=== PATIENT | female | born 1965 | race Caucasian/White ===

== ENCOUNTER → 2016-12-25 | Outpatient (CLI) | payer BC, OTHER ==
[~2016-12-25] VITALS: Ht 175.3 cm; Wt 53.4 kg
[~2016-12-25] MED LIST: AAA; CHANTIX1 MG PO; DEPO-PROVERA IJ; GINKGO BILOBA120 MG PO; HORMONES; HYDROCODON-ACE1 EAC5 PO; NORCO 10-325 T1 EACH PO; VOLTAREN GEL 1100 GM TOP; WELLBUTRIN 75 M75 M1 PO
--- NOTE | ~2016-12-25 | HPC ---
[facility] [place] [address] PAIN MANAGEMENT CONSULTATION Name: DEMIMARYLUJULIUS WILKES Room #: REG [facility] Magy.#: [id number] Admission: 12/25/16 Attend Phys: Elroy Campos DO Discharge: Date of : 61 Report #: [id number] THIS REPORT FOR: //name// CC: Anne Campos The patient is a 51-year-old female being treated for lumbar radiculopathy, chronic pain syndrome requiring complex medication management. Last seen in the pain clinic 08/25/2016. Continued hydrocodone 10/325, 100 tablets for 30 days. Cautioned about daytime somnolence, mental acuity changes and constipation. Recommended to decreased tobacco. Returns to pain clinic today, last urine drug screen 03/06/2016 positive for prescribed medications, but also noted to have ethanol component as well. I have concerned prior urine drug screen 1 year ago 02/01/2015 also had hydrocodone and tablets of ethanol. She continues to use spinal cord stimulator and is efficacious. She notes pain across the low back is generally well controlled. She and her traveled to [place] for majority of the winter. They had summered in [facility]. She notes with increasing activity at night and simply "lounging" around during the day, reading books, and tanning. She did increase her smoking. She is back to nearly a pack a day. She was counseled regarding need for smoking cessation. She notes overall medications provide sufficient analgesia to participate in activities of daily living. Chronic axial back pain again does get some control with the spinal cord stimulator, hydrocodone helps with, pain exacerbated with physical activity. PHYSICAL EXAMINATION: GENERAL: Shows a pleasant 51-year-old female, BMI is 19.2 kilograms per meter squared. Vital signs stable. Alert and oriented to person, place and time, judged to be a reasonable historian. Rises from chair easily. Gait is tandem. Diffuse tenderness across the low back. We reviewed the fact that opiate medications are being used to provide analgesia adequate to support activities of daily living, not attempting to achieve a specific pain score on the 0-10 Visual Analog Scale. The current opiate medications are providing sufficient analgesia to allow the patient to participate in activities of daily living. The patient is not exhibiting any aberrant behavior suggestive of drug diversion. The patient is not having any adverse reactions to medications. The patient is not suffering from daytime somnolence or mental acuity changes. The patient is managing opiate-induced constipation with appropriate auvb-pgj-oqdzhgq agents and dietary considerations. The patient was counseled on concern for caution with operating a motor vehicle while using opiate medications. A physical exam was performed and the patient's functional status was evaluated. All patients with back pain were advised against the bed rest greater than [address] [address] PAIN MANAGEMENT CONSULTATION Name: JULIUS FANG Room #: REG CL Jose#: [id number] Admission: 12/25/16 Attend Phys: Elroy Campos DO Discharge: Date of : 61 Report #: [id number] days and were advised to return to normal activities. Pain score assessment was noted and the treatment plan was reviewed with the patient. All current medications, both prescribed and OTC were reviewed and reconciled on the electronic medical record. Tobacco screening was accomplished and smoking cessation was advised when indicated. BMI was noted and diet/exercise modification was recommended for all patients following outside normal parameters. I reviewed with the patient today their responsibilities to safeguard prescription medications, reviewed their responsibility to utilize medications only as prescribed by the physician. They are to seek and receive pain medications only from 1 physician group ( [facility]). They are to use 1 pharmacy and keep the clinic informed if they change pharmacies. Their responsibilities include making followup visits in a timely fashion and to avoid abrupt discontinuation of medication usage. Their responsibilities further include bringing their medications (bottles from the pharmacy with residual pills) to the visit for possible confirmation of pill counts and the patient understands it is their responsibility to submit to random drug screens to ensure both that the medications prescribed are present, and that no other controlled substances are present. All prescriptions provided today were generated electronically. ASSESSMENT: Symptomatic lumbar radiculopathy, chronic pain syndrome requiring complex medication management. RECOMMENDATIONS: 1. Renew hydrocodone 10/325, 100 tablets for 30 days, taken the liberty of writing for 3 months of current medication. 2. Continue spinal cord stimulator unchanged. 3. Cautioned about smoking cessation and concurrent use of ethanol with hydrocodone. We will likely get a urine drug screen at next visit and it should be around 1 year since the last UDS. The patient was cautioned about concerns for osteoarthritis with a postmenopausal female, BMI less than 20 and nicotine use. She is following up with Dr. Julian, actually this week for bone density test. I strongly encouraged her to continue with this. By: [id number] Elroy Campos, /nt
[2016-12-25 10:22] VITALS: BP 152/103
== END | disposition home or self-care (01) ==
LOC: PAIN 06:51
DX: M54.16 Radiculopathy, lumbar region (principal); G89.4 Chronic pain syndrome; F17.200 Nicotine dependence, unspecified, uncomplicated

== ENCOUNTER → 2017-03-23 | Outpatient (CLI) | payer BC, OTHER ==
[~2017-03-23] VITALS: Ht 175.3 cm; Wt 51.3 kg
[~2017-03-23] MED LIST changes: +LISINOPRIL20 MG PO
[2017-03-23 13:24] VITALS: BP 122/86
== END | disposition home or self-care (01) ==
LOC: PAIN 06:56
DX: M54.16 Radiculopathy, lumbar region (principal); G89.29 Other chronic pain; M54.9 Dorsalgia, unspecified; F11.20 Opioid dependence, uncomplicated; F17.200 Nicotine dependence, unspecified, uncomplicated

== ENCOUNTER → 2017-06-25 | Outpatient (CLI) | payer BC, OTHER ==
[~2017-06-25] VITALS: Ht 175.3 cm; Wt 51.4 kg
[~2017-06-25] MED LIST changes: +CALCIUM 600 +1 EAC1 PO; -GINKGO BILOBA120 MG PO; +[UNRECOGNIZED DRUG - OTHER] PO
--- NOTE | ~2017-06-25 | HPC ---
[facility] [place] [address] [address] [place] [address] PAIN MANAGEMENT CONSULTATION Name: ANNALISAJULIUS WILKES Room #: REG JOSY Garcia#: [id number] Admission: 06/25/17 Attend Phys: Elroy Campos, Discharge: Date of : 61 Report #: [id number] THIS REPORT FOR: //name// CC: Anne Campos The patient is a 52-year-old female, being treated for lumbar radiculopathy, axial back pain, requiring high risk complex medication management. Last seen in the pain clinic 03/23/2017, continued on hydrocodone 10/325 one tablet 3-4 times a day, limit 100 tablets for 30 days. The patient was counseled regarding smoking cessation. She is somewhat cachectic, BMI is 16.7 kg/m2. We talked about concern for osteoporosis. 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 Physician had suggested that she start on calcium and vitamin D. We talked about tobacco cessation, she has weaned tobacco. She had planned on quitting, she notes with some ad that her pkrtoh-ix-mjm is coming in July, she notes that she will try and completely quit smoking after that visit. Otherwise, she is doing reasonably well on current medication. No problems with daytime somnolence, mental acuity changes, or constipation. Rates her pain a 2 on VAS, notes that pain is primarily back, right little greater than left. Uses spinal cord stimulator to help with pain management and medications as needed for her ongoing axial back and lumbar radicular pain. PHYSICAL EXAMINATION: A 52-year-old female, BMI remains 16.7 kg/m2. Blood pressure 148/91, pulse 73, and respirations are 14. Alert and oriented to person, place and time, judged to be a reasonable historian. Rises from chair using armrest. Gait is tandem. Lower extremity strength is generally symmetric. Lumbar flexion is modestly limited. She is doing water therapy daily, again talked about medications for bone density and strongly encouraged smoking cessation. Last buccal drug swab 03/23/2017, was positive for prescribed medications. Alcohol was not listed (prior urine drug screen 03/08/2017, was positive for hydrocodone, hydrocodone metabolites and ethanol metabolites). We reviewed the fact that opiate medications are being used to provide analgesia adequate to support activities of daily living, not attempting to achieve a specific pain score on the 0-10 Visual Analog Scale. The current opiate medications are providing sufficient analgesia to allow the patient to participate in activities of daily living. The patient is not exhibiting any aberrant behavior suggestive of drug diversion. The patient is not having any adverse reactions to medications. The patient is not suffering from daytime somnolence or mental acuity changes. The patient [place] [address] PAIN MANAGEMENT CONSULTATION Name: JULIUS FANG Room #: REG CLKey Garcia#: [id number] Admission: 06/25/17 Attend Phys: Elroy Campos DO Discharge: Date of : 61 Report #: [id number] constipation with appropriate wfaw-wnc-aijnqiz agents and dietary considerations. The patient was counseled on concern for caution with operating a motor vehicle while using opiate medications. A physical exam was performed and the patient's functional status was evaluated. All patients with back pain were advised against the bed rest greater than 4 days and were advised to return to normal activities. Pain score assessment was noted and the treatment plan was reviewed with the patient. All current medications, both prescribed and OTC were reviewed and reconciled on the electronic medical record. Tobacco screening was accomplished and smoking cessation was advised when indicated. BMI was noted and diet/exercise modification was recommended for all patients following outside normal parameters. I reviewed with the patient today their responsibilities to safeguard prescription medications, reviewed their responsibility to utilize medications only as prescribed by the physician. They are to seek and receive pain medications only from 1 physician group ( [facility]). They are to use 1 pharmacy and keep the clinic informed if they change pharmacies. Their responsibilities include making followup visits in a timely fashion and to avoid abrupt discontinuation of medication usage. Their responsibilities further include bringing their medications (bottles from the pharmacy with residual pills) to the visit for possible confirmation of pill counts and the patient understands it is their responsibility to submit to random drug screens to ensure both that the medications prescribed are present, and that no other controlled substances are present. All prescriptions provided today were generated electronically. ASSESSMENT: Axial back pain, lumbar radiculopathy, requiring high risk complex medication management, stable on hydrocodone 10/325 one tablet 3-4 times a day, limit 100 tablets for 30 days, using spinal cord stimulator appropriately. Follow up in 3 months for reevaluation. <ELECTRONICALLY SIGNED> By: Elroy Campos DO 06/27/17 [id number] Elroy Campos DO /nt
[2017-06-25 09:27] VITALS: BP 148/91
== END ==
LOC: PAIN 06:59
DX: M54.16 Radiculopathy, lumbar region (principal)

== ENCOUNTER → 2017-08-27 | Outpatient (CLI) | payer BC, OTHER ==
[~2017-08-27] VITALS: Ht 175.3 cm; Wt 49.9 kg
--- NOTE | ~2017-08-27 | HPC ---
[facility] [place] [address] [place] [address] PAIN MANAGEMENT CONSULTATION Name: JULIUS FANG Room #: REG [facility] Magy.#: [id number] Admission: 08/27/17 Attend Phys: Elroy Campos DO Discharge: Date of : 61 Report #: [id number] THIS REPORT FOR: //name// CC: Anne Campos HISTORY OF PRESENT ILLNESS: The patient is a 52-year-old female, long known to the pain clinic for chronic lumbar radiculopathy, axial back pain requiring high risk complex medication management. The patient was last seen in pain clinic on 06/25/2017, continued hydrocodone 10/325 one tablet 3-4 times a day, limit 100 tablets for 30 days. Last random drug screen on 03/23/2017 was positive for prescribed medications and no others. (Prior 2014 and 2015 studies were positive for prescribed medications as well as ethanol metabolites). She returns to clinic today. She drinks alcohol occasionally socially. She is weaning down on her cigarettes. She is osteopenic and does take vitamin D and calcium. This is prescribed by her general practitioner. She has spinal cord stimulator placed to help with ongoing axial back pain. She rates her pain overall 2 on a VAS. She notes pain is worse in the morning, pain is primarily back and right side. PHYSICAL EXAMINATION: Shows a thin 52-year-old female, BMI is quite low at 16.2 kilograms per meter squared. The patient was cautioned about osteopenia and cachexia, encouraged protein supplementation. Blood pressure is modestly elevated at 140/95, pulse 86, respirations 14. She is alert and oriented to person, place and time and judged to be a reasonable historian. Rises easily. Gait is tandem. Has some tenderness in the right low back. Lumbar flexion is full at 90 degrees. Pain slightly exacerbates with rotation and side bending. Lower extremity strength is symmetric. Straight leg raise is negative. ASSESSMENT: Symptomatic axial back pain, history of lumbar radiculopathy, requiring high risk complex medication management, stable on baseline medication. RECOMMENDATIONS: 1. Again continue smoking cessation. She has weaned significantly. 2. Continue hydrocodone 10/325 one tablet 3-4 times a day, limit 100 tablets for 30 days. I have taken the liberty of writing for 3 months of current medication. Follow up at that time, earlier if needed. <ELECTRONICALLY SIGNED> By: Elroy Campos DO 08/29/17 [id number] Elroy Campos DO /nt
[2017-08-27 11:35] VITALS: BP 140/95
== END ==
LOC: PAIN 07:11
DX: M54.16 Radiculopathy, lumbar region (principal); Z79.899 Other long term (current) drug therapy

== ENCOUNTER → 2017-12-17 | Outpatient (CLI) | payer BC, OTHER ==
[~2017-12-17] VITALS: Ht 177.8 cm; Wt 52.2 kg
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
[2017-12-17 09:50] VITALS: BP 156/106
== END ==
LOC: PAIN 07:12
DX: M54.16 Radiculopathy, lumbar region (principal); Z79.899 Other long term (current) drug therapy

== ENCOUNTER → 2018-03-15 | Outpatient (CLI) | payer BC, OTHER ==
[~2018-03-15] VITALS: Ht 175.3 cm; Wt 52.6 kg
--- NOTE | ~2018-03-15 | HPC ---
[facility] [place] [address] PAIN MANAGEMENT CONSULTATION Name: JULIUS FANG Room #: REG JOSY Bhatti.#: [id number] Admission: 03/15/18 Attend Phys: Elroy Campos DO Discharge: Date of : 61 Report #: [id number] THIS REPORT FOR: //name// CC: Anne Campos DATE OF SERVICE: 03/15/2018 HISTORY OF PRESENT ILLNESS: The patient is a pleasant 52-year-old female, long treated for symptomatic lumbar radiculopathy and axial back pain requiring complex medication management. She has a Selphee spinal cord stimulator implanted back in 2010 by Kai Andrew MD. She has a central posterior epidural space lead and then a right horizontal subcutaneous lead. States she had a fairly good relief using this device. Unfortunately, she notes she is having to charge it more frequently. She may have to have the IPG replaced, I suggested she follow up with Dr. Andrew regarding this. She was last seen in pain clinic on 12/17/2017, continued on hydrocodone 10/325, limit 100 tablets for 30 days. She was counseled regarding smoking cessation and I am pleased to note that she is now 30 days a nonsmoker. She is loathe to say she is a "nonsmoker." She simply tells me she has "not had a cigarette today nor has she in the past 30 days." The patient notes current medications are generally providing sufficient analgesia to participate in activities of daily living. She and her travel extensively. He brought her a fairly aggressive motorcycle. He rides a [employer] himself. They trailer the motorcycles around to various locations where they stay for prolonged vacations. They are planning to go to [place], [place], in the next month. PHYSICAL EXAMINATION: GENERAL: Shows a pleasant 52-year-old female. She remains quite underweight with a BMI of 17.1 kilograms per meter squared. She was counseled regarding increasing caloric intake. VITAL SIGNS: Blood pressure is elevated today at 167/106, pulse 66, respirations are 14. Blood pressure was repeated at 140/98. MUSCULOSKELETAL: Subjective pain score is 2-3 on a VAS. Opiate consent to treat contract was signed on 03/06/2016. Functional assessment tool score is fairly low at 8/70. Physical exam otherwise notes the patient rises easily. Gait is tandem. Lower extremity strength is preserved. Diffuse tenderness across the low back. The IPG is easily palpable in the left flank, can somewhat palpate the right lateral subcutaneous lead and appears to be around the L3-L4 distribution heading right. Lumbar range of motion is modestly limited. We reviewed the fact that opiate medications are being used to provide analgesia adequate to support activities of daily living, not attempting to achieve a [facility] [address] [place] [address] PAIN MANAGEMENT CONSULTATION Name: JULIUS FANG Room #: REG JOSY Garcia#: [id number] Admission: 03/15/18 Attend Phys: Elroy Campos DO Discharge: Date of : 61 Report #: [id number] specific pain score on the 0-10 Visual Analog Scale. The current opiate medications are providing sufficient analgesia to allow the patient to participate in activities of daily living. The patient is not exhibiting any aberrant behavior suggestive of drug diversion. The patient is not having any adverse reactions to medications. The patient is not suffering from daytime somnolence or mental acuity changes. The patient is managing opiate-induced constipation with appropriate dltn-zsg-pffpazv agents and dietary considerations. The patient was counseled on concern for caution with operating a motor vehicle while using opiate medications. A physical exam was performed and the patient's functional status was evaluated. All patients with back pain were advised against the bed rest greater than 4 days and were advised to return to normal activities. Pain score assessment was noted and the treatment plan was reviewed with the patient. All current medications, both prescribed and OTC were reviewed and reconciled on the electronic medical record. Tobacco screening was accomplished and smoking cessation was advised when indicated. BMI was noted and diet/exercise modification was recommended for all patients following outside normal parameters. I reviewed with the patient today their responsibilities to safeguard prescription medications, reviewed their responsibility to utilize medications only as prescribed by the physician. They are to seek and receive pain medications only from 1 physician group ( [facility]). They are to use 1 pharmacy and keep the clinic informed if they change pharmacies. Their responsibilities include making followup visits in a timely fashion and to avoid abrupt discontinuation of medication usage. Their responsibilities further include bringing their medications (bottles from the pharmacy with residual pills) to the visit for possible confirmation of pill counts and the patient understands it is their responsibility to submit to random drug screens to ensure both that the medications prescribed are present, and that no other controlled substances are present. All prescriptions provided today were generated electronically. ASSESSMENT: Axial back pain, lumbar radiculopathy requiring complex medication management. The patient is stable on baseline medications. Last random drug screen 03/23/2017, positive for prescribed medications. RECOMMENDATION: 1. The patient was congratulated on 30 days smoking cessation, encouraged to continue in this mode. 2. Renew hydrocodone 10/325, limit 100 tablets for 30 days. I have taken the [facility] [address] [place] [address] PAIN MANAGEMENT CONSULTATION Name: JULIUS FANG Room #: REG [facility].#: [id number] Admission: 03/15/18 Attend Phys: Elroy Campos DO Discharge: Date of : 61 Report #: [id number] liberty of writing for 3 months of current medication. Follow up with one of the [facility] at that time, earlier if needed. <ELECTRONICALLY SIGNED> By: Elroy Campos DO 03/18/18 0659 [id number] 11 Elroy Campos DO /nt
[2018-03-15 09:25] VITALS: BP 167/106
== END ==
LOC: PAIN 06:52
DX: M54.16 Radiculopathy, lumbar region (principal); M54.5 Low back pain; Z79.899 Other long term (current) drug therapy

== ENCOUNTER → 2018-06-11 | Outpatient (CLI) | payer BC, OTHER ==
[~2018-06-11] VITALS: Ht 175.3 cm; Wt 53.7 kg
--- NOTE | ~2018-06-11 | HPC ---
[facility] [address] [place] [address] PAIN MANAGEMENT CONSULTATION Name: ANNALISAJULIUS WILKES Room #: REG [facility] [place].#: [id number] Admission: 06/11/18 Attend Phys: Abebe Campos DO Discharge: Date of : 61 Report #: [id number] THIS REPORT FOR: //name// CC: Abebe Lopez DATE OF SERVICE: 06/11/2018 PRIMARY CARE PHYSICIAN: Anne Julian DO CHIEF COMPLAINT: Back pain, lower extremity pain and paresthesias. HISTORY OF PRESENT ILLNESS: As you know, the patient is a very pleasant 53-year-old female with longstanding history of symptomatic lumbar radiculopathy and axial back pain. The patient has undergone treatment with a spinal cord stimulator, but is having difficulty with battery. It appears the patient is having difficulty with charging her battery and maintaining efficacy with the device. She has contacted [employer] who indicates that they believe her battery is beginning to fail and she may ultimately need changes, which would be an excellent opportunity to move towards the newer battery and newer technology, so she can get a subtherapeutic treatment where she is not feeling the paresthesias, she is going to look into this further. She returns today in followup visit requesting refill of medications. She states no side effects to medication of somnolence, decreased mental acuity, disorientation, confusion, mental slowing and constipation issues. She is placing her pain score today 2/10, which is good for her. She returns with aching and sharp sensation in her back and lower extremities. She has requested refills for the next 3 months. She has been appropriate with her therapy. ALLERGIES: No known drug allergies. CURRENT MEDICATIONS: Hydrocodone/acetaminophen 10/325 one tab every 6 hours p.r.n. for pain, calcium carbonate 1 tab per day, lisinopril 20 mg once a day, bupropion 75 mg twice a day. SOCIAL HISTORY: The patient denies current tobacco use. Denies IV or illicit drug use. She is working, not receiving workmen's compensation, unaccompanied today. IMAGING: No new imaging available. PHYSICAL EXAMINATION: VITAL SIGNS: Blood pressure 123/81, pulse 74, respiratory rate 14 and unlabored. The patient is 97% on room air. Height 5 feet 9 inches tall, weight 118.4 pounds, BMI calculated 17.5. [place] [address] PAIN MANAGEMENT CONSULTATION Name: JULIUS FANG Room #: REG CLI [facility]#: [id number] Admission: 06/11/18 Attend Phys: Abebe Campos DO Discharge: Date of : 61 Report #: [id number] GENERAL: Well-developed, well-nourished, well-hydrated, thin, 53-year-old female, appearing stated age, placing current pain score at 2/10. HEENT: Normocephalic, atraumatic. Pupils equal, round, reactive to light. EXTREMITIES: Show no clubbing, no cyanosis, no edema. MUSCULOSKELETAL: Seated straight leg raising negative. Supine straight leg raising is positive. Coral's test negative. Modified Gaenslen's positive for axial low back pain. Ankle clonus negative. Babinski is negative. Gait mildly antalgic. There is slight forward flexion of lumbar spine in standing position. ASSESSMENT: 1. Lumbar radiculopathy. 2. Lumbosacral spondylosis with radiculopathy. 3. Lumbar degeneration. 4. Chronic intractable pain. PLAN: 1. The patient returns today in followup visit requesting refill on medications. She states her medications are working beneficially, this in conjunction with her spinal cord stimulator. She returns requesting refill on the medication today. 2. We reviewed the fact that opiate medications are being used to provide analgesia adequate to support activities of daily living, not attempting to achieve a specific pain score on the 0-10 Visual Analog Scale. The current opiate medications are providing sufficient analgesia to allow the patient to participate in activities of daily living. The patient is not exhibiting any aberrant behavior suggestive of drug diversion. The patient is not having any adverse reactions to medications. The patient is not suffering from daytime somnolence or mental acuity changes. The patient is managing opiate-induced constipation with appropriate gjml-rmx-yywfixt agents and dietary considerations. The patient was counseled on concern for caution with operating a motor vehicle while using opiate medications. A physical exam was performed and the patient's functional status was evaluated. All patients with back pain were advised against the bed rest greater than 4 days and were advised to return to normal activities. Pain score assessment was noted and the treatment plan was reviewed with the patient. All current medications, both prescribed and OTC were reviewed and reconciled on the electronic medical record. Tobacco screening was accomplished and smoking cessation was advised when indicated. BMI was noted and diet/exercise modification was recommended for all patients following outside normal parameters. I reviewed with the patient today their responsibilities to safeguard prescription medications, reviewed their responsibility to utilize medications only as prescribed by the physician. They are to seek and receive pain medications only from 1 physician group ([facility]). They are to use [address] [address] PAIN MANAGEMENT CONSULTATION Name: JULIUS FANG Room #: REG JOSY Garcia#: [id number] Admission: 06/11/18 Attend Phys: Abebe Campos DO Discharge: Date of : 61 Report #: [id number] 1 pharmacy and keep the clinic informed if they change pharmacies. Their responsibilities include making followup visits in a timely fashion and to avoid abrupt discontinuation of medication usage. Their responsibilities further include bringing their medications (bottles from the pharmacy with residual pills) to the visit for possible confirmation of pill counts and the patient understands it is their responsibility to submit to random drug screens to ensure both that the medications prescribed are present, and that no other controlled substances are present. All prescriptions provided today were generated electronically. 3. The patient was provided prescription of hydrocodone 10/325, 1 tab p.o. q. 6 hours p.r.n. for pain, I have given the patient #100, releases of today, 4 weeks from today, 8 weeks from today, 3 months' worth of medication. The patient wants to take the medication as directed. She is not to take the medication prophylactically and use only when pain is intolerable. 4. The patient will submit her urine drug screen today. This is part of our opioid contract and monitoring system. The patient will undergo this drug screen today. She can call for the results in the next week. 5. The patient and I had a very long discussion about spinal cord stimulator technology. It does appear the patient is having difficulty with her pulse generator and the battery tends to appear as if it is failing. I have advised the patient to contact the [employer] account maintenance representative to make further adjustments if at all possible if the battery is truly at its end of life. Given 7-year implant, this is probably the case, she could exchange this for a new battery and pulse generator, which could provide the patient with subtherapeutic paresthesias, thus reducing the "shocking sensation she has been experiencing." The patient will look into this further. We encouraged her to do so. 6. We will see the patient back in followup visit in 3 months for medication therapy. <ELECTRONICALLY SIGNED> By: Abebe Campos DO 06/12/18 0848 [id number] Abebe Campos DO /nt
[2018-06-11 09:00] VITALS: BP 123/81
== END ==
LOC: PAIN 06:50
DX: M54.16 Radiculopathy, lumbar region (principal); G89.4 Chronic pain syndrome; M51.36 Other intervertebral disc degeneration, lumbar region; M47.817 Spondylosis without myelopathy or radiculopathy, lumbosacral region; Z79.899 Other long term (current) drug therapy

== ENCOUNTER → 2018-09-04 | Outpatient (CLI) | payer BC, OTHER ==
[~2018-09-04] VITALS: Ht 175.3 cm; Wt 52.7 kg
--- NOTE | ~2018-09-04 | HPC ---
[facility] [place] [address] PAIN MANAGEMENT CONSULTATION Name: ANNALISAJULIUS WILKES Room #: REG [facility] Magy.#: [id number] Admission: 09/04/18 Attend Phys: Cassia Owens Discharge: Date of : 61 Report #: [id number] THIS REPORT FOR: //name// CC: Cassia Owens Anne Eliel DATE OF SERVICE: 09/04/2018 CHIEF COMPLAINT: Back pain, lower extremity pain and paresthesias. HISTORY OF PRESENT ILLNESS: This is a very pleasant 53-year-old female with longstanding history of lumbar radiculopathy and axial back pain. She tells me today she has a spinal cord stimulator that has not been working. Last time she was here, the battery was running low and Dr. Campos talked to her about having it replaced. She has seen Dr. Andrew and spoke with the [employer] rep and is scheduled for surgery in October to have her battery replaced. She tells me since it has not been working, that her pain score is slightly higher, rating her pain today at 3/10. I am looking forward to having it replace with a new battery, newer technology, think that it can help quite a bit more, that she is going out of town to [place] for the next several months, so that is why she is waiting until October since she was unable to get it done this year. She complains of pain in right side of her lower back of an aching, sharp pain, rating at 3/10 today, better with medications and was previously better with her spinal cord stimulator. She would like a refill of her current medications today. CURRENT ALLERGIES: No known drug allergies. MEDICATIONS: Hydrocodone 10/325 up to 4 times a day, calcium with vitamin D, lisinopril 20 mg daily, bupropion 75 mg twice a day. PQRS: The patient does not take medicines for osteoarthritis or rheumatoid arthritis. Height is 5 feet 9 inches, weight is 116, BMI is 17. Vital signs: Blood pressure 130/90, pulse is 78, respirations 14, oxygen sat 97%. Pain score 3/10. Denies dizziness. Does not need help walking or standing. Has not fallen in the last 3 months. She is not on a blood thinner and does have a history taking hypertension medicines. Opioid therapy is greater than 6 weeks, therefore, an opioid signed contract is on the chart. Her risk assessment is low and her functional assessment is 8/70. The patient denies recreational drug use. She is a former smoker and occasionally drinks alcohol. We did check the prescription monitoring system. The patient is filling appropriately from Dr. Abebe Campos, this year show that she does take some Ativan, which she has not told us about, that only has taken a couple per the prescription monitoring systems. She has a recent drug screen on the chart, which is appropriate with the medications that she is taking. The patient tells me she does safeguard her medications. [address] [address] PAIN MANAGEMENT CONSULTATION Name: JULIUS FANG Room #: REG JOSY Garcia#: [id number] Admission: 09/04/18 Attend Phys: Cassia Owens Discharge: Date of : 61 Report #: [id number] PHYSICAL EXAMINATION: GENERAL: This is a well-developed, well-nourished, well-hydrated, thin 53-year-old, appears her stated age, placing her current pain score at 3/10. HEENT: Normocephalic, atraumatic. Pupils equal, round and reactive to light. EXTREMITIES: Showing no clubbing, no cyanosis, no edema. MUSCULOSKELETAL: Seated straight leg raising is negative. There is a slight forward flexion of the lumbar spine in the standing position. She complains of axial low back pain. Gait is mildly antalgic. ASSESSMENT: 1. Lumbar radiculopathy. 2. Lumbosacral spondylosis with radiculopathy. 3. Lumbar degeneration. 4. Chronic intractable pain. We reviewed the fact that opiate medications are being used to provide analgesia adequate to support activities of daily living, not attempting to achieve a specific pain score on the 0-10 Visual Analog Scale. The current opiate medications are providing sufficient analgesia to allow the patient to participate in activities of daily living. The patient is not exhibiting any aberrant behavior suggestive of drug diversion. The patient is not having any adverse reactions to medications. The patient is not suffering from daytime somnolence or mental acuity changes. The patient is managing opiate-induced constipation with appropriate vtny-wym-ojyrayj agents and dietary considerations. The patient was counseled on concern for caution with operating a motor vehicle while using opiate medications. A physical exam was performed and the patient's functional status was evaluated. All patients with back pain were advised against the bed rest greater than 4 days and were advised to return to normal activities. Pain score assessment was noted and the treatment plan was reviewed with the patient. All current medications, both prescribed and OTC were reviewed and reconciled on the electronic medical record. Tobacco screening was accomplished and smoking cessation was advised when indicated. BMI was noted and diet/exercise modification was recommended for all patients following outside normal parameters. I reviewed with the patient today their responsibilities to safeguard prescription medications, reviewed their responsibility to utilize medications only as prescribed by the physician. They are to seek and receive pain medications only from 1 physician group ( [facility]). They are to use 1 pharmacy and keep the clinic informed if they change pharmacies. Their responsibilities include making followup visits in a timely fashion and to avoid abrupt discontinuation of medication usage. Their responsibilities further include bringing their medications (bottles from the pharmacy with residual [facility] [address] [place] [address] PAIN MANAGEMENT CONSULTATION Name: ANNALISAJULIUSRosemary WILKES Room #: REG [facility] Nancy.Emily.#: [id number] Admission: 09/04/18 Attend Phys: Cassia Owens Discharge: Date of : 61 Report #: [id number] pills) to the visit for possible confirmation of pill counts and the patient understands it is their responsibility to submit to random drug screens to ensure both that the medications prescribed are present, and that no other controlled substances are present. All prescriptions provided today were generated electronically. PLAN: 1. The patient returns for followup visit today requesting refills of her medications. She tells me that they are working very well. She felt like she had better pain control and her spinal cord stimulator was working, but the battery has been completely depleted and now is scheduled for a replacement in October after she returns home from her [place] winter vacation. 2. Scripts given today for hydrocodone 10/325 one tablet up to 4 times a day, quantity is 100, for release today, 4-week and 8-week. The patient tells me that she will safeguard these medicines, especially when they are traveling out of state, but does keep them locked up in her trailer when she is gone. 3. The patient will return after her spinal cord stimulator has been replaced in late October. The patient is seen today in collaboration with Dr. Abebe Campos. <ELECTRONICALLY SIGNED> By: Cassia Owens 09/05/18 0833 [id number] [id number] Cassia Owens /nt
[2018-09-04 09:44] VITALS: BP 130/90
== END ==
LOC: PAIN 08:50
DX: M47.27 Other spondylosis with radiculopathy, lumbosacral region (principal); G89.4 Chronic pain syndrome; M51.36 Other intervertebral disc degeneration, lumbar region

== ENCOUNTER → 2018-11-05 | Outpatient (CLI) | payer BC, OTHER ==
[~2018-11-05] VITALS: Ht 175.3 cm; Wt 54.2 kg
[~2018-11-05] MED LIST changes: +ESZOPICLONE2 MG PO; +PROGESTERO50 MG/1 M3 IM; +PROGESTERONE100 MG PO
[2018-11-05 12:50] VITALS: BP 152/92
--- NOTE | 2018-11-05 13:02 | NUR ---
Pain Clinic Assessment: 1. History of Osteoarthritis: Not Applicable History of Rheumatoid Arthritis: Not Applicable 2. Height: 5 ft. 9 in. 175.3 cm. Weight: 119.6 lb. oz. 54.250 kg. Patient's BMI: 17.7 3. Vital Signs: BP: 152/92 Pulse: 89 Resp: 14 Temp: 02 Sat: 98 ECG Mon: 4. Pain Intensity: 3 5. Fall Risk: Dizziness: N Needs help standing or walking: N Fallen in the last 3 months: N Fall risk comments: 6. Patient on Blood Thinner: None 7. History of Hypertension: Y 8. Opioid Therapy greater than 6 weeks: Y Opiate Contract Signed: 03/06/16 9. Risk Assessment Tool Provided: 1/LOW 10. Functional Assessment Tool: 11. Recreational Drug Use: Never Drug Type: Tobacco Use: Former Smoker Tobacco Type: Amount or Packs/day: How Many Years: Alcohol Use: Yes Frequency: Daily Quant: 2
--- NOTE | 2018-11-06 07:46 | HPC ---
[facility] [place] [address] PAIN MANAGEMENT CONSULTATION Name: ANNALISAJULIUS WILKES Room #: REG [facility] Magy.#: [id number] Admission: 11/05/18 ������������������ Attend Phys: Cassia Owens Discharge: ������������������ Date of : 61 Report #: [id number] THIS REPORT FOR: //name// CC: Cassia Owens Annesylvie Julian DATE OF SERVICE: 11/05/2018 CHIEF COMPLAINT: Back pain, lower extremity pain and paresthesias. HISTORY OF PRESENT ILLNESS: This is a very pleasant 53-year-old female who has a longstanding history of lumbar radiculopathy and axial back pain. She tells me that she recently had her spinal cord stimulator battery replaced by [employer] under the care of Dr. Andrew. She will go next week to have her postop visit and have her second lead turned on. Currently, her lateral lead is on and giving her some relief. The patient is returning to [place] for the rest of the winter and is here slightly early to have a medication refill since she was in town. Pain score today is 3/10. Complains of low back right-sided pain. She denies any problems with constipation. She tells me that her mornings are worse, but she is hopeful that with the spinal cord stimulator battery replaced that she is able to do more and hopefully decrease her narcotic use. CURRENT ALLERGIES: No known drug allergies. CURRENT MEDICATIONS: Hydrocodone 10/325 up to 3 times a day, calcium carbonate 600 mg daily, lisinopril 20 mg daily and Wellbutrin 75 mg b.i.d. PQRS: 1. She does not take any medicines for osteoarthritis or rheumatoid arthritis. 2. Height is 5 feet 9 inches, weight is 119. BMI is 17.7. 3. Vital signs: 152/92, pulse is 89, respirations 14 and oxygen sat is 98. 4. Pain score is 3/10. 5. Fall risk. She denies dizziness. Does not need help walking or standing and has not fallen in the last 3 months. 5. The patient is not on blood thinners. She does have a history of hypertension. 6. Opiate therapy is greater than 6 weeks. Therefore, an opioid signed contract is on the chart. 7. Risk assessment tool is low. Her functional assessment is . 8. Recreational drug use, she denies. She is a former smoker and occasionally drinks alcohol. We did check the prescription monitoring system. The patient is filling appropriately for her narcotics from Dr. Abebe Campos. There is a recent drug screen on the chart that has been here in the past year that is appropriate. [address] [address] PAIN MANAGEMENT CONSULTATION Name: JULIUS FANG Room #: REG JOSY Garcia#: [id number] Admission: 11/05/18 ������������������ Attend Phys: Cassia Owens Discharge: ������������������ Date of : 61 Report #: [id number] PHYSICAL EXAMINATION:: GENERAL: This is a well-developed, well-nourished 53-year-old female who appears her stated age placing her current pain score at 3/10. HEENT: Normocephalic and atraumatic. Pupils are equal, round and reactive to light. EXTREMITIES: Shows no clubbing, no cyanosis and no edema. MUSCULOSKELETAL: Seated straight leg raising is negative. The patient complains of axial low back pain. She has a dressing on her left lower back from her recent spinal cord stimulator battery replacement with no bruising noted. Gait is mildly antalgic. ASSESSMENT: 1. Lumbar radiculopathy. 2. Lumbosacral spondylosis with radiculopathy. 3. Lumbar degeneration. 4. Chronic intractable pain. We reviewed the fact that opiate medications are being used to provide analgesia adequate to support activities of daily living, not attempting to achieve a specific pain score on the 0-10 Visual Analog Scale. The current opiate medications are providing sufficient analgesia to allow the patient to participate in activities of daily living. The patient is not exhibiting any aberrant behavior suggestive of drug diversion. The patient is not having any adverse reactions to medications. The patient is not suffering from daytime somnolence or mental acuity changes. The patient is managing opiate-induced constipation with appropriate fbdo-fsa-itucbyz agents and dietary considerations. The patient was counseled on concern for caution with operating a motor vehicle while using opiate medications. A physical exam was performed and the patient's functional status was evaluated. All patients with back pain were advised against the bed rest greater than 4 days and were advised to return to normal activities. Pain score assessment was noted and the treatment plan was reviewed with the patient. All current medications, both prescribed and OTC were reviewed and reconciled on the electronic medical record. Tobacco screening was accomplished and smoking cessation was advised when indicated. BMI was noted and diet/exercise modification was recommended for all patients following outside normal parameters. I reviewed with the patient today their responsibilities to safeguard prescription medications, reviewed their responsibility to utilize medications only as prescribed by the physician. They are to seek and receive pain medications only from 1 physician group ([facility]). They are to use 1 pharmacy and keep the clinic informed if they change pharmacies. Their responsibilities include making followup visits in a timely fashion and to avoid abrupt discontinuation of medication usage. Their responsibilities further [address] [address] PAIN MANAGEMENT CONSULTATION Name: JULIUS FANG Room #: REG [facility]#: [id number] Admission: 11/05/18 ������������������ Attend Phys: Cassia Owens Discharge: ������������������ Date of : 61 Report #: [id number] include bringing their medications (bottles from the pharmacy with residual pills) to the visit for possible confirmation of pill counts and the patient understands it is their responsibility to submit to random drug screens to ensure both that the medications prescribed are present, and that no other controlled substances are present. All prescriptions provided today were generated electronically. PLAN: 1. We discussed treatment options with the patient today. She has requested a refill of her current medications while she is in town. She knows that she is early for this refill. She will get them filled in 1 month time approximately in [place] where she has been spending the winter. She will be there through the end of December, so she will fill two prescriptions in [place] before returning home. Scripts were given today for her hydrocodone 10/325, #100, for 4-week release, 8-week release and 12-week release. 2. The patient tells that she will be seeing Dr. Andrew next week to have her spinal cord stimulator battery replacement checked and have her ivan removed. Dr. Campos was present for part of this visit and encouraged her to talk to the [employer] rep about changing her programs and giving her some programming that allows her to not feel so much paresthesias in her back from her lateral lead. 3. The patient will be seen in 3-months' time period for prescription refills. If she is able to decrease her medications since her spinal cord stimulator will be working, she may be longer than 3 months. 4. The patient is seen with Dr. Campos and in collaboration with Dr. Campos today. ��������������������������������������������� <ELECTRONICALLY SIGNED> ���������������������������������������� By: Cassia Owens ��������������������������������������������� 11/06/18 0746 [id number] Cassia Owens /nt
== END ==
LOC: PAIN 12:35
DX: M47.27 Other spondylosis with radiculopathy, lumbosacral region (principal); M51.16 Intervertebral disc disorders with radiculopathy, lumbar region; G89.4 Chronic pain syndrome; Z79.899 Other long term (current) drug therapy

== ENCOUNTER → 2019-02-25 | Outpatient (CLI) | payer BC, OTHER ==
[~2019-02-25] VITALS: Ht 175.3 cm; Wt 52.4 kg
[2019-02-25 08:38] VITALS: BP 136/99
--- NOTE | 2019-02-25 08:57 | NUR ---
Pain Clinic Assessment: 1. History of Osteoarthritis: Not Applicable History of Rheumatoid Arthritis: Not Applicable 2. Height: 5 ft. 9 in. 175.3 cm. Weight: 115.6 lb. oz. 52.436 kg. Patient's BMI: 17.1 3. Vital Signs: BP: 136/99 Pulse: 74 Resp: 14 Temp: 02 Sat: 100 ECG Mon: 4. Pain Intensity: 3 5. Fall Risk: Dizziness: N Needs help standing or walking: N Fallen in the last 3 months: N Fall risk comments: 6. Patient on Blood Thinner: None 7. History of Hypertension: Y 8. Opioid Therapy greater than 6 weeks: Y Opiate Contract Signed: 03/06/16 9. Risk Assessment Tool Provided: 1/REZA 10. Functional Assessment Tool: 11. Recreational Drug Use: Never Drug Type: Tobacco Use: Current Every Day Smoker Tobacco Type: Cigarettes Amount or Packs/day: 0.5 How Many Years: 25 Alcohol Use: Yes Frequency: Daily Quant: 2 COCKTAILS A DAY
--- NOTE | 2019-02-26 13:43 | HPC ---
[facility] [place] [address] PAIN MANAGEMENT CONSULTATION Name: JULIUS FANG Room #: REG [facility] M..#: [id number] Admission: 02/25/19 ������������������ Attend Phys: Cassia Owens Discharge: ������������������ Date of : 61 Report #: [id number] THIS REPORT FOR: //name// CC: Cassia Owens Annesylvie Julian DATE OF SERVICE: 02/25/2019 CHIEF COMPLAINT: Back pain, lower extremity pain and paresthesias. HISTORY OF PRESENT ILLNESS: This is a very pleasant 53-year-old female who returns to the pain clinic today for her medication management that she uses to help treat her lumbar radiculopathy and axial back pain. She tells me that her [employer] spinal cord stimulator is working quite well since she had her new battery replaced. She tells me that they have turned on both her leads and she has several different programs that are controlling her pain very well. She continues to take an average of 3 pain pills a day, but does need 4 on days that she is more active. Her mornings are worse with a sharp achy pain. She rates her pain score today at 3/10. She denies any problems with constipation or daytime sleepiness. ALLERGIES: No known drug allergies. CURRENT MEDICATIONS: Progesterone, Lunesta 2 mg at bedtime, hydrocodone 10/325 up to 4 times a day, Caltrate, Zestril 20 mg daily and Wellbutrin 75 mg b.i.d. PQRS: 1. Denies any rheumatoid arthritis and not taking any medications for osteoarthritis. 2. Height is 5 feet 9 inches, weight is 115, BMI is 17. 3. Vital signs: Blood pressure 136/99, pulse 74, respirations 14, oxygen sat is 100. 4. Pain score is 3/10. 5. Fall risk: Denies dizziness. She does not need help with walking or standing and has not fallen in the last 3 months. She is not on any blood thinners, but does take medicine for hypertension. Opioid therapy is greater than 6 weeks; therefore, an opioid signed contract is on the chart. 6. Her risk assessment tool is low. Functional assessment is 70. 7. Recreational drug use, she denies. She does smoke about half a pack a day and drinks about 2 drinks per day. We did check the prescription monitoring system, not able to find her name in the system today, but we can see through the computer that she had filled them recently. There is a recent drug screen on the chart that is appropriate for her medications. [address] [address] PAIN MANAGEMENT CONSULTATION Name: JULIUS FANG Room #: REG Key Garcia#: [id number] Admission: 02/25/19 ������������������ Attend Phys: Cassia Owens Discharge: ������������������ Date of : 61 Report #: [id number] PHYSICAL EXAMINATION: GENERAL: This is a well-developed, well-nourished, well-hydrated, thin 53-year-old who appears her stated age, placing her current pain score today at 3/10. HEENT: Normocephalic, atraumatic. Pupils equal, round and reactive to light. EXTREMITIES: No clubbing, no cyanosis, no edema. MUSCULOSKELETAL: The patient complains of slight discomfort in her lumbar spine, does not radiate down her legs today. She does walk with a mildly antalgic gait. Her lower extremity strength judged to be 5/5 in all major muscle groups. ASSESSMENT: 1. Lumbar radiculopathy. 2. Lumbosacral spondylosis with radiculopathy. 3. Lumbar degeneration. 4. Chronic intractable pain. 5. Recent battery replacement of her spinal cord stimulator. We reviewed the fact that opiate medications are being used to provide analgesia adequate to support activities of daily living, not attempting to achieve a specific pain score on the 0-10 Visual Analog Scale. The current opiate medications are providing sufficient analgesia to allow the patient to participate in activities of daily living. The patient is not exhibiting any aberrant behavior suggestive of drug diversion. The patient is not having any adverse reactions to medications. The patient is not suffering from daytime somnolence or mental acuity changes. The patient is managing opiate-induced constipation with appropriate fvjy-mcg-sjeganz agents and dietary considerations. The patient was counseled on concern for caution with operating a motor vehicle while using opiate medications. A physical exam was performed and the patient's functional status was evaluated. All patients with back pain were advised against the bed rest greater than 4 days and were advised to return to normal activities. Pain score assessment was noted and the treatment plan was reviewed with the patient. All current medications, both prescribed and OTC were reviewed and reconciled on the electronic medical record. Tobacco screening was accomplished and smoking cessation was advised when indicated. BMI was noted and diet/exercise modification was recommended for all patients following outside normal parameters. I reviewed with the patient today their responsibilities to safeguard prescription medications, reviewed their responsibility to utilize medications only as prescribed by the physician. They are to seek and receive pain medications only from 1 physician group ([facility]). They are to use 1 pharmacy and keep the clinic informed if they change pharmacies. Their responsibilities include making followup visits in a timely fashion and to avoid [address] [address] PAIN MANAGEMENT CONSULTATION Name: JULIUS FANG Room #: REG CLKey Bhatti#: [id number] Admission: 02/25/19 ������������������ Attend Phys: Cassia Owens Discharge: ������������������ Date of : 61 Report #: [id number] abrupt discontinuation of medication usage. Their responsibilities further include bringing their medications (bottles from the pharmacy with residual pills) to the visit for possible confirmation of pill counts and the patient understands it is their responsibility to submit to random drug screens to ensure both that the medications prescribed are present, and that no other controlled substances are present. All prescriptions provided today were generated electronically. PLAN: 1. We discussed treatment options with the patient today. The patient would like a refill of her medications. Scripts given for hydrocodone 10/325, #100 for today, 4-week and 8-week release and encouraged the patient to try and taper if she is able since her spinal cord stimulator is working so well. The patient will try to do this over the next few months. 2. We did talk about smoking cessation. The patient had stopped for a while and has restarted. The patient will try to decrease smoking again. 3. Dr. Abebe Campos did see the patient and collaborated care today. The patient will return in 3 months' time since she falls under the low category on the CDC guidelines at 30 morphine mEq a day. ��������������������������������������������� <ELECTRONICALLY SIGNED> ���������������������������������������� By: Cassia Owens ��������������������������������������������� 02/26/19 1343 1033 1423 Cassia Owens /kimmy
== END ==
LOC: PAIN 06:43
DX: M47.27 Other spondylosis with radiculopathy, lumbosacral region (principal); G89.29 Other chronic pain; Z79.899 Other long term (current) drug therapy

== ENCOUNTER → 2019-05-27 | Outpatient (CLI) | payer BC, OTHER ==
[~2019-05-27] VITALS: Ht 175.3 cm; Wt 52.3 kg
[2019-05-27 09:00] VITALS: BP 155/94
--- NOTE | 2019-05-27 09:16 | NUR ---
Pain Clinic Assessment: 1. History of Osteoarthritis: Not Applicable History of Rheumatoid Arthritis: Not Applicable 2. Height: 5 ft. 9 in. 175.3 cm. Weight: 115.4 lb. oz. 52.345 kg. Patient's BMI: 17.0 3. Vital Signs: BP: 155/94 Pulse: 77 Resp: 14 Temp: 02 Sat: 98 ECG Mon: 4. Pain Intensity: 3 5. Fall Risk: Dizziness: N Needs help standing or walking: N Fallen in the last 3 months: N Fall risk comments: 6. Patient on Blood Thinner: None 7. History of Hypertension: Y 8. Opioid Therapy greater than 6 weeks: Y Opiate Contract Signed: 03/06/16 9. Risk Assessment Tool Provided: 1/LOW 10. Functional Assessment Tool: 11. Recreational Drug Use: Never Drug Type: Tobacco Use: Current Every Day Smoker Tobacco Type: Cigarettes Amount or Packs/day: 0.5 How Many Years: 25 Alcohol Use: Yes Frequency: Daily Quant: 2 DRINKS A DAY
--- NOTE | 2019-05-28 08:41 | HPC ---
[facility] [place] [address] PAIN MANAGEMENT CONSULTATION Name: JULIUS FANG Room #: REG [facility]..#: [id number] Admission: 05/27/19 ������������������ Attend Phys: Cassia Owens Discharge: ������������������ Date of : 61 Report #: [id number] THIS REPORT FOR: //name// CC: Cassia Julian DO DATE OF SERVICE: 05/27/2019 CHIEF COMPLAINT: Back pain, lower extremity pain and paresthesias. HISTORY OF PRESENT ILLNESS: This is a very pleasant 54-year-old female who returns to the pain clinic today for medication refills that she uses to help treat her ongoing low back pain. She reports a pain score of 3/10 today. It is an achy, sharp pain, mornings are worse, but her medications and spinal cord stimulator is very helpful. She reports that her new battery that she received this past winter has been working well. She does use her spinal cord stimulator 24 hours a day and does recharge it nightly. She denies any problems with constipation or daytime sleepiness that she may suffer from with her hydrocodone as a possible side effects. Overall, she feels like she is doing quite well. CURRENT ALLERGIES: No known drug allergies. CURRENT LIST OF MEDICATIONS: Hydrocodone 10/325 three to four times a day, progesterone, Lunesta, calcium, lisinopril and bupropion. PQRS: 1. She denies any rheumatoid arthritis or osteoarthritis. 2. Height is 5 feet 9 inches, weight is 115, BMI is 17. 3. Vital signs: 155/94, pulse is 77, respirations 14, oxygen sat is 98. 4. Pain score is 3/10. 5. Denies dizziness, does not need help walking or standing, has not fallen in the last 3 months. 6. The patient is not on any blood thinners, but does take medicine for hypertension. Opioid therapy is greater than 6 weeks; therefore, an opioid signed contract is on the chart. 7. Risk assessment tool is low. Functional assessment is . 8. Recreational drug use, she denies. She is a current smoker and drinks 2 drinks of alcoholic beverages a day. 9. According to the prescription monitoring system, the patient is due for a refill of her hydrocodone today. She is filling in a timely fashion. There is a recent drug screen on the chart that is appropriate for her medications as well. PHYSICAL EXAMINATION: GENERAL: This is a well-developed, well-nourished, well-hydrated 54[place] [address] PAIN MANAGEMENT CONSULTATION Name: JULIUS FANG Room #: REG [facility] Magy.#: [id number] Admission: 05/27/19 ������������������ Attend Phys: Cassia Owens Discharge: ������������������ Date of : 61 Report #: [id number] female who appears her stated age, placing her current pain score at 3/10 today. HEENT: Normocephalic, atraumatic. Pupils are equal, round and reactive to light. EXTREMITIES: No clubbing, no cyanosis, no edema. MUSCULOSKELETAL: She walks with a mildly antalgic gait. Lower extremity strength judged to be 5/5 in all major muscle groups. She complains of slight discomfort in her lumbar spine with no radicular symptoms today. She does have a spinal cord stimulator battery pack in her lower buttock. She has slight pain with forward flexion of her lumbar spine. ASSESSMENT: 1. Lumbar radiculopathy. 2. Lumbosacral spondylosis with radiculopathy. 3. Lumbar degeneration. 4. Chronic intractable pain. 5. Axial back pain. 6. Spinal cord stimulator. We reviewed the fact that opiate medications are being used to provide analgesia adequate to support activities of daily living, not attempting to achieve a specific pain score on the 0-10 Visual Analog Scale. The current opiate medications are providing sufficient analgesia to allow the patient to participate in activities of daily living. The patient is not exhibiting any aberrant behavior suggestive of drug diversion. The patient is not having any adverse reactions to medications. The patient is not suffering from daytime somnolence or mental acuity changes. The patient is managing opiate-induced constipation with appropriate bzpq-ken-ymfubqr agents and dietary considerations. The patient was counseled on concern for caution with operating a motor vehicle while using opiate medications. A physical exam was performed and the patient's functional status was evaluated. All patients with back pain were advised against the bed rest greater than 4 days and were advised to return to normal activities. Pain score assessment was noted and the treatment plan was reviewed with the patient. All current medications, both prescribed and OTC were reviewed and reconciled on the electronic medical record. Tobacco screening was accomplished and smoking cessation was advised when indicated. BMI was noted and diet/exercise modification was recommended for all patients following outside normal parameters. I reviewed with the patient today their responsibilities to safeguard prescription medications, reviewed their responsibility to utilize medications only as prescribed by the physician. They are to seek and receive pain medications only from 1 physician group ([facility]). They are to use 1 pharmacy and keep the clinic informed if they change pharmacies. Their responsibilities include making followup visits in a timely fashion and to avoid [address] [address] PAIN MANAGEMENT CONSULTATION Name: JULIUS FANG Room #: REG [facility]#: [id number] Admission: 05/27/19 ������������������ Attend Phys: Cassia Owesn Discharge: ������������������ Date of : 61 Report #: [id number] abrupt discontinuation of medication usage. Their responsibilities further include bringing their medications (bottles from the pharmacy with residual pills) to the visit for possible confirmation of pill counts and the patient understands it is their responsibility to submit to random drug screens to ensure both that the medications prescribed are present, and that no other controlled substances are present. All prescriptions provided today were generated electronically. PLAN: 1. We discussed treatment options with the patient today. The patient's blood pressure is slightly elevated today and on perusal of the chart several of her blood pressures were borderline high. We encouraged her to keep track of this at home. If it continues to be a problem or if she continues to be elevated or if she starts having headaches or feeling like her blood pressure may be elevated, we encouraged her to contact her primary care doctor. 2. Scripts given today for her hydrocodone 10/325. The patient is doing quite well on this current dose. According to the CDC guidelines, it is 35 morphine milliequivalents a day, well below their recommendations. Scripts given today for 10/325, #100 to be released today for an 8-week. 3. The patient will return in [address] Abebe Campos prior to heading to [place] for the winter as she does every year. The patient was seen in collaboration with Dr. Abebe Campos today. ��������������������������������������������� <ELECTRONICALLY SIGNED> ���������������������������������������� By: Cassia Owens ��������������������������������������������� 05/28/19 0841 [id number] Cassia [place]
== END ==
LOC: PAIN 06:47
DX: M47.27 Other spondylosis with radiculopathy, lumbosacral region (principal); M51.16 Intervertebral disc disorders with radiculopathy, lumbar region; G89.4 Chronic pain syndrome; Z79.899 Other long term (current) drug therapy

== ENCOUNTER → 2019-08-19 | Outpatient (CLI) | payer BC, OTHER ==
[~2019-08-19] VITALS: Ht 175.3 cm; Wt 52.1 kg
[2019-08-19 08:26] VITALS: BP 126/99
--- NOTE | 2019-08-19 08:42 | NUR ---
Pain Clinic Assessment: 1. History of Osteoarthritis: Not Applicable History of Rheumatoid Arthritis: Not Applicable 2. Height: 5 ft. 9 in. 175.3 cm. Weight: 114.8 lb. oz. 52.073 kg. Patient's BMI: 16.9 3. Vital Signs: BP: 126/99 Pulse: 82 Resp: 14 Temp: 02 Sat: 98 ECG Mon: 4. Pain Intensity: 3 5. Fall Risk: Dizziness: N Needs help standing or walking: N Fallen in the last 3 months: N Fall risk comments: 6. Patient on Blood Thinner: None 7. History of Hypertension: Y 8. Opioid Therapy greater than 6 weeks: Y Opiate Contract Signed: 03/06/16 9. Risk Assessment Tool Provided: 1/REZA 10. Functional Assessment Tool: 11. Recreational Drug Use: Never Drug Type: Tobacco Use: Current Every Day Smoker Tobacco Type: Amount or Packs/day: How Many Years: Alcohol Use: Yes Frequency: Quant:
--- NOTE | 2019-08-19 13:00 | HPC ---
[facility] [address] [place] [address] PAIN MANAGEMENT CONSULTATION Name: ANNALISAJULIUS KATRIN Room #: REG [facility] M..#: [id number] Admission: 08/19/19 Attend Phys: Cassia Owens Discharge: Date of : 61 Report #: [id number] THIS REPORT FOR: //name// CC: Cassia Campos DO Anne Julian DO DATE OF SERVICE: 08/19/2019 CHIEF COMPLAINT: Back pain, lower extremity pain. HISTORY OF PRESENT ILLNESS: This is a 54-year-old female who is returning to the pain clinic today for refill of her medications. She reports her pain is doing quite well with her current regimen using her spinal cord stimulator, which is very beneficial in controlling most of her pain and an occasional pain pill several times a day, so she reports her pain score at 3/10. It is located in her lower back radiating down her right side. The mornings are met with worsening pain and that does decrease as the day progresses. She uses her spinal cord stimulator at all times and feels that the new device and battery are working quite well that she had installed earlier and had replaced earlier this year. The patient reports no problems with constipation or daytime sleepiness from this medication. She reports she will be traveling to [place] for the winter as she has done from the past several years. [facility] does fill her medications while she is there. ALLERGIES: No known drug allergies. CURRENT MEDICATIONS: Hydrocodone 10/325 2-3 times a day, Lunesta 2 mg at bedtime, Caltrate, Zestril 20 mg daily, and bupropion 75 mg b.i.d. PQRS: 1. She denies any rheumatoid or osteoarthritis. 2. Height is 5 feet 9 inches, weight is 114, BMI is 16. Vital signs 122/99, pulse is 82, respirations 14, oxygen sat is 98. Pain score is 3/10. The patient denies dizziness, does not need help walking or standing, has not fallen in the last 3 months. The patient is not on any blood thinners, but does take medicine for hypertension. Her opioid use is greater than 6 weeks; therefore, she has opioid signed contract on the chart. Her risk assessment is low. Functional assessment is . 3. Recreational drug use, she denies. She is a current smoker and occasionally drinks alcohol. According to the prescription monitoring system, the patient is filling appropriately for her medications. We will check a random [place] [address] PAIN MANAGEMENT CONSULTATION Name: JULIUS FANG Room #: REG CLI [facility]#: [id number] Admission: 08/19/19 Attend Phys: Cassia Owens Discharge: Date of : 61 Report #: [id number] this patient, has been greater than one year. PHYSICAL EXAMINATION: GENERAL: This is alert and orientated 54-year-old female who appears her stated age, placing her current pain score at 3/10 today. HEENT: Normocephalic, atraumatic. Extraocular eye muscles are intact. Mucous membranes are moist. EXTREMITIES: No clubbing, no cyanosis, no edema. MUSCULOSKELETAL: She walks with a slightly antalgic gait. Lower extremity strength judged to be 5/5 in all major muscle groups. She has tenderness in her lumbosacral region of her spine with no radicular symptoms today. Spinal cord stimulator placed in her buttock. ASSESSMENT: 1. Lumbar radiculopathy. 2. Lumbosacral spondylosis with radiculopathy. 3. Lumbar degeneration. 4. Chronic intractable pain. 5. Complex medical management under terms of written opioid agreement. 6. We reviewed the fact that opiate medications are being used to provide analgesia adequate to support activities of daily living, not attempting to achieve a specific pain score on the 0-10 Visual Analog Scale. The current opiate medications are providing sufficient analgesia to allow the patient to participate in activities of daily living. The patient is not exhibiting any aberrant behavior suggestive of drug diversion. The patient is not having any adverse reactions to medications. The patient is not suffering from daytime somnolence or mental acuity changes. The patient is managing opiate-induced constipation with appropriate wock-pxd-hehwqsw agents and dietary considerations. The patient was counseled on concern for caution with operating a motor vehicle while using opiate medications. A physical exam was performed and the patient's functional status was evaluated. All patients with back pain were advised against the bed rest greater than 4 days and were advised to return to normal activities. Pain score assessment was noted and the treatment plan was reviewed with the patient. All current medications, both prescribed and OTC were reviewed and reconciled on the electronic medical record. Tobacco screening was accomplished and smoking cessation was advised when indicated. BMI was noted and diet/exercise modification was recommended for all patients following outside normal parameters. I reviewed with the patient today their responsibilities to safeguard prescription medications, reviewed their responsibility to utilize medications only as prescribed by the physician. They are to seek and receive pain medications only from 1 physician group ([facility]). They are to use 1 pharmacy and keep the clinic informed if they change pharmacies. Their [facility] [address] [place] [address] PAIN MANAGEMENT CONSULTATION Name: JULIUS FANG Room #: REG CLI Jose#: [id number] Admission: 08/19/19 Attend Phys: Cassia Owens Discharge: Date of : 61 Report #: [id number] responsibilities include making followup visits in a timely fashion and to avoid abrupt discontinuation of medication usage. Their responsibilities further include bringing their medications (bottles from the pharmacy with residual pills) to the visit for possible confirmation of pill counts and the patient understands it is their responsibility to submit to random drug screens to ensure both that the medications prescribed are present, and that no other controlled substances are present. All prescriptions provided today were generated electronically. PLAN: 1. We discussed treatment options with the patient today. The patient feels that her hydrocodone 10/325 are very beneficial. We will send those medications to [facility] for 100 tablets for today for an 8-week release. The patient is getting ready to go to [place] for 4 months. We will enable her to call us in 3 months. We will e-sign one prescription for her labeling one additional month. The patient is instructed to have an appointment as soon as she returns in December for further medication refills. 2. Again, we discussed smoking cessation. The patient continues to try and decrease and is down to only a few cigarettes a day. 3. The patient's spinal cord stimulator is working quite well and feels it is very beneficial. 4. The patient is seen in collaboration with Dr. Abebe Campos today. <ELECTRONICALLY SIGNED> By: Cassia Owens 08/19/19 [id number] Cassia butterfield
== END ==
LOC: PAIN 06:35
DX: M47.27 Other spondylosis with radiculopathy, lumbosacral region (principal); M51.16 Intervertebral disc disorders with radiculopathy, lumbar region; G89.4 Chronic pain syndrome; Z79.891 Long term (current) use of opiate analgesic

== ENCOUNTER → 2019-12-17 | Outpatient (CLI) | payer BC, OTHER | LOC: PAIN 12:50 | DX: M47.27 Other spondylosis with radiculopathy, lumbosacral region (principal); G31.89 Other specified degenerative diseases of nervous system; G89.29 Other chronic pain; M54.16 Radiculopathy, lumbar region; F11.20 Opioid dependence, uncomplicated; R20.2 Paresthesia of skin; Z79.899 Other long term (current) drug therapy ==

== ENCOUNTER → 2020-03-16 | Outpatient (CLI) | payer OTHER ==
[~2020-03-16] VITALS: Ht 175.3 cm; Wt 50.8 kg
[~2020-03-16] MED LIST changes: +VITAMIN B-121000 MC2 PO; +VITAMINC500 PO
[2020-03-16 12:34] VITALS: BP 141/96
--- NOTE | 2020-03-16 12:38 | NUR ---
Pain Clinic Assessment: 1. History of Osteoarthritis: Not Applicable History of Rheumatoid Arthritis: Not Applicable 2. Height: 5 ft. 9 in. 175.3 cm. Weight: 112.0 lb. oz. 50.803 kg. Patient's BMI: 16.5 3. Vital Signs: BP: 141/96 Pulse: 74 Resp: 16 Temp: 02 Sat: 96 ECG Mon: 4. Pain Intensity: 2 5. Fall Risk: Dizziness: N Needs help standing or walking: N Fallen in the last 3 months: N Fall risk comments: 6. Patient on Blood Thinner: None 7. History of Hypertension: Y 8. Opioid Therapy greater than 6 weeks: Y Opiate Contract Signed: 03/06/16 9. Risk Assessment Tool Provided: 1/LOW 10. Functional Assessment Tool: 11. Recreational Drug Use: Never Drug Type: Tobacco Use: Current Every Day Smoker Tobacco Type: Cigarettes Amount or Packs/day: 8-10 CIGS How Many Years: 25 Alcohol Use: Yes Frequency: Daily Quant: 1
--- NOTE | 2020-03-16 14:48 | HPC ---
[facility] [address] [address] PAIN MANAGEMENT CONSULTATION Name: JULIUS FANG Room #: REG [facility]..#: [id number] Admission: 03/16/20 Attend Phys: Cassia Owens Discharge: Date of : 61 Report #: [id number] THIS REPORT FOR: cc: Anne Julian MD,Anne Owens,Cassia ARREDONDO ~ CC: Abebe Campos DO DATE OF SERVICE: 03/16/2020 CHIEF COMPLAINT: Back pain, lower extremity pain and paresthesias. HISTORY OF PRESENT ILLNESS: As you know, this is a very pleasant 54-year-old female who returns to the pain clinic today for refill of her medications that she uses to help treat her ongoing low back pain that does radiate down her right back and leg. Today, she is reporting a pain score 2/10. She feels that her hydrocodone has been very beneficial in controlling her pain as well as her spinal cord stimulator, which she uses at all times. She attributes her lower pain score currently to swimming in the pool. She finds that has been beneficial and loosening her back up, especially when it is aching after work. She denies any problems with constipation or daytime somnolence. Today, she is requesting refills of her hydrocodone. ALLERGIES: No known drug allergies. CURRENT LIST OF MEDICATIONS: Vitamin C, vitamin B12, hydrocodone 10/325, Lunesta, Caltrate, lisinopril, and Wellbutrin. PQRS: 1. She denies osteo or rheumatoid arthritis. 2. Height is 5 feet 9 inches, weight is 112, BMI is 16. Vital signs, 141/96, pulse is 74, respirations 16, oxygen sat is 96%. Pain score is 2/10. Denies dizziness, does not need help walking or standing, has not fallen in the last 3 months. The patient is not on any blood thinner, but does take medicine for hypertension. Her opioid therapy is greater than 6 weeks; therefore, an opioid signed contract is on the chart. Risk assessment tool is low. Functional assessment is . 3. Recreational drug use, she denies. She is a current tobacco smoker of 8-10 cigarettes a day and occasionally drinks alcohol. According to the prescription monitoring system, the patient is filling appropriately. She is due to fill her medications today. Her morphine mEq is 30 mme's per day. PHYSICAL EXAMINATION: GENERAL: This is a well-developed, well-nourished, well-hydrated 54[place] [address] PAIN MANAGEMENT CONSULTATION Name: JULIUS FANG Room #: REG [facility]#: [id number] Admission: 03/16/20 Attend Phys: Cassia Owens Discharge: Date of : 61 Report #: [id number] female who appears her stated age, placing her current pain score at 2/10. HEENT: Normocephalic, atraumatic. Pupils equal, round and reactive to light. She is wearing a mask. EXTREMITIES: No clubbing, no cyanosis, no edema. MUSCULOSKELETAL: She has pain in her lumbosacral region that does radiate into her bilateral legs. Her lower extremity strength judged to be 5/5 in all major muscle groups. She has a slightly antalgic gait. She does have a spinal cord stimulator battery in her left buttock. ASSESSMENT: 1. Lumbar radiculopathy. 2. Lumbosacral spondylosis with radiculopathy. 3. Lumbar degeneration. 4. Chronic intractable pain. 5. Spinal cord stimulator therapy and use. 6. Opioid medication management under terms of written agreement. We reviewed the fact that opiate medications are being used to provide analgesia adequate to support activities of daily living, not attempting to achieve a specific pain score on the 0-10 Visual Analog Scale. The current opiate medications are providing sufficient analgesia to allow the patient to participate in activities of daily living. The patient is not exhibiting any aberrant behavior suggestive of drug diversion. The patient is not having any adverse reactions to medications. The patient is not suffering from daytime somnolence or mental acuity changes. The patient is managing opiate-induced constipation with appropriate xrcf-djn-amqhgkr agents and dietary considerations. The patient was counseled on concern for caution with operating a motor vehicle while using opiate medications. PLAN: 1. We discussed treatment options with the patient today. The patient finds her medications very beneficial. She is working 3 days a week at the [employer]. She finds that some days after work she is requiring 4 pills. Normally, she is able to get by with 3 of her hydrocodone on a daily basis. She has been swimming and feels that has been beneficial as well. Today, we will have Dr. Abebe Campos electronically send her hydrocodone 10/325, quantity 100 for today release 04/08/2020 release and 05/11/2020 release. 2. We did release her second prescription slightly early due to a vacation fill that she will be gone for 30 days, leaving 5 days before her next refill. I encouraged the patient to keep her meds safeguarded at all times when she is traveling and she verbalizes understanding. They do travel quite extensively in their RV and she is used to keeping her meds locked up. [address] [address] PAIN MANAGEMENT CONSULTATION Name: JULIUS FANG Room #: REG [facility].#: [id number] Admission: 03/16/20 Attend Phys: Cassia Owens Discharge: Date of : 61 Report #: [id number] 3. The patient will return as needed. The patient is seen in collaboration with Dr. Abebe Campos. <ELECTRONICALLY SIGNED> By: Cassia Owens 03/16/20 1448 [id number] Cassia Owens /nt
== END ==
LOC: PAIN 06:55
PROVIDERS: ATTEND Clinical Nurse Specialist Adult Health
DX: M47.27 Other spondylosis with radiculopathy, lumbosacral region (principal); M51.16 Intervertebral disc disorders with radiculopathy, lumbar region; G89.29 Other chronic pain; M96.1 Postlaminectomy syndrome, not elsewhere classified; F11.20 Opioid dependence, uncomplicated; R20.2 Paresthesia of skin; M79.609 Pain in unspecified limb; Z79.899 Other long term (current) drug therapy

== ENCOUNTER → 2020-06-15 | Outpatient (CLI) | payer OTHER ==
[~2020-06-15] VITALS: Ht 175.3 cm; Wt 49.8 kg
[~2020-06-15] MED LIST changes: +VITAMIN D-40010 MCG PO; +ZINC30 M1 PO
[2020-06-15 08:37] VITALS: BP 139/96
--- NOTE | 2020-06-15 08:48 | NUR ---
Pain Clinic Assessment: 1. History of Osteoarthritis: Not Applicable History of Rheumatoid Arthritis: Not Applicable 2. Height: 5 ft. 9 in. 175.3 cm. Weight: 109.8 lb. oz. 49.805 kg. Patient's BMI: 16.2 3. Vital Signs: BP: 139/96 Pulse: 66 Resp: 14 Temp: 02 Sat: 100 ECG Mon: 4. Pain Intensity: 3 5. Fall Risk: Dizziness: N Needs help standing or walking: N Fallen in the last 3 months: N Fall risk comments: 6. Patient on Blood Thinner: None 7. History of Hypertension: Y 8. Opioid Therapy greater than 6 weeks: Y Opiate Contract Signed: 03/06/16 9. Risk Assessment Tool Provided: 1/LOW 10. Functional Assessment Tool: 11. Recreational Drug Use: Never Drug Type: Tobacco Use: Current Every Day Smoker Tobacco Type: Cigarettes Amount or Packs/day: 1/2 How Many Years: 30 Alcohol Use: Yes Frequency: Daily Quant: 2
--- NOTE | 2020-06-15 12:49 | HPC ---
[facility] [address] [place] [address] PAIN MANAGEMENT CONSULTATION Name: JULIUS FANG [id number] Admission: 06/15/20 Attend Phys: Abebe Campos DO Discharge: Date of : 61 Report #: [id number] CC: Abebe KEITH DO Anne Keith DATE OF SERVICE: 06/15/2020 CHIEF COMPLAINT: Low back pain, lower extremity pain and paresthesias. HISTORY OF PRESENT ILLNESS: As you know, the patient is a pleasant 55-year-old female who returns today in followup visit requesting refill of medications. She believes a combination of medications along with her spinal cord stimulator is providing excellent benefit despite the fact that she is placing pain score 3/10. She states she takes 3 to possibly 4 hydrocodone a day for pain control that is uncontrolled by her current spinal cord stimulating device. She returns today in followup visit, denying side effects of sleepiness, disorientation, confusion, mental slowing with use of the therapy. She is indicating a pain impact of 15/70, mild interference of daily activities secondary to pain. Unfortunately, the patient continues to smoke. She reports half pack tobacco per day and has been advised this exacerbates her chronic pain. She continues to do so despite our discussions. She returns today requesting refill on medications stating no side effects with their use. ALLERGIES: No known drug allergies. CURRENT MEDICATIONS: Bupropion 75 mg b.i.d., lisinopril 20 mg once a day, calcium carbonate 1 tab per day, cyanocobalamin 1000 mcg per day, ascorbic acid 500 mg per day, hydrocodone/acetaminophen 10/325 one tab every 6 hours p.r.n. for pain, multivitamin 1 tab per day, zinc gluconate 30 mg per day. SOCIAL HISTORY: The patient continues to smoke, reporting half a pack of tobacco per day. Denies IV or illicit drug use. Denies any chronic alcohol use. She is unaccompanied at today's visit. IMAGING: No new imaging available. PHYSICAL EXAMINATION: VITAL SIGNS: Blood pressure 139/96, pulse 66, respiratory rate 14 and unlabored. The patient is 100% on room air. Height 5 feet 9 inches tall, weight 109.8 pounds, BMI calculated 16.2. GENERAL: A well-developed, thin, 55-year-old female appearing stated age, pain is rated around 3/10. HEENT: Normocephalic, atraumatic. Pupils equal, round and reactive. Speech is fluent. EXTREMITIES: Show no clubbing, no appreciable edema. MUSCULOSKELETAL: Palpatory tenderness is noted once again over the lower lumbar spine. A well-healed surgical scars from spinal cord stimulator implantation and revision. Lower extremity strength equal and symmetrical 5/5. Muscle bulk and tone equal and symmetrical in lower extremities. Gait does not appear to be antalgic. Stance is slightly forward flexed with minimal loss of lumbar lordosis. Seated straight leg raising negative. Supine straight leg raising is negative. ASSESSMENT: 1. Chronic lumbar radiculopathy. 2. Lumbosacral spondylosis with radicular symptoms. 3. Lumbar degeneration. 4. Opioid medication management use with written agreement. 5. Chronic intractable pain. PLAN: 1. The patient returns today in followup visit indicating good efficacy with combination of medications and spinal cord stimulator technology. She has had a revision to her spinal cord stimulator and no longer experiences paresthesias and has noted that her pain has improved. She is now placing pain score 3/10. She continues to rely on hydrocodone on an as needed basis up to 4 times a day. She and I had a long discussion about the need to continue to reduce the use of those medications and reduce her reliance on this therapy as these medications may not be available long-term. At this time, she feels medications are working beneficially and wishes no changes in therapy. She understands to utilize the medication on a p.r.n. basis and not to use the medication prophylactically. 2. We reviewed the fact that opiate medications are being used to provide analgesia adequate to support activities of daily living, not attempting to achieve a specific pain score on the 0-10 Visual Analog Scale. The current opiate medications are providing sufficient analgesia to allow the patient to participate in activities of daily living. The patient is not exhibiting any aberrant behavior suggestive of drug diversion. The patient is not having any adverse reactions to medications. The patient is not suffering from daytime somnolence or mental acuity changes. The patient is managing opiate-induced constipation with appropriate jtlj-rpu-bqbnbgf agents and dietary considerations. The patient was counseled on concern for caution with operating a motor vehicle while using opiate medications. A physical exam was performed and the patient's functional status was evaluated. All patients with back pain were advised against the bed rest greater than 4 days and were advised to return to normal activities. Pain score assessment was noted and the treatment plan was reviewed with the patient. All current medications, both prescribed and OTC were reviewed and reconciled on the electronic medical record. Tobacco screening was accomplished and smoking cessation was advised when indicated. BMI was noted and diet/exercise modification was recommended for all patients following outside normal parameters. I reviewed with the patient today their responsibilities to safeguard prescription medications, reviewed their responsibility to utilize medications only as prescribed by the physician. They are to seek and receive pain medications only from [facility] physician group ( [facility]). They are to use 1 pharmacy and keep the clinic informed if they change pharmacies. Their responsibilities include making followup visits in a timely fashion and to avoid abrupt discontinuation of medication usage. Their responsibilities further include bringing their medications (bottles from the pharmacy with residual pills) to the visit for possible confirmation of pill counts and the patient understands it is their responsibility to submit to random drug screens to ensure both that the medications prescribed are present, and that no other controlled substances are present. All prescriptions provided today were generated electronically. 3. The patient was provided prescription of hydrocodone 10/325 one tab p.o. q. 6 hours p.r.n. for pain. Again, the patient had #100 tablets to release today, 4 weeks from today, 8 weeks from today, 3 months' worth of medication. All prescriptions sent via e-scribe to local pharmacy. 4. Our plan is to see the patient back in followup visit in 3 months to discuss medication management further. We have encouraged the patient strongly to discontinue the use of tobacco as it has been shown to directly affect, chronic pain. The patient will attempt to make some adjustments in this social activity. We will see her back in 3 months. <ELECTRONICALLY SIGNED> By: Abebe Campos DO 06/15/20 1249 [id number] Abebe Campos DO /nt
== END ==
LOC: PAIN 06:49
PROVIDERS: ATTEND Anesthesiology Pain Medicine
DX: M47.27 Other spondylosis with radiculopathy, lumbosacral region (principal); M51.16 Intervertebral disc disorders with radiculopathy, lumbar region; F11.20 Opioid dependence, uncomplicated; G89.29 Other chronic pain; R20.2 Paresthesia of skin; Z79.899 Other long term (current) drug therapy

== ENCOUNTER → 2020-09-14 | Outpatient (CLI) | payer OTHER ==
[~2020-09-14] VITALS: Ht 175.3 cm; Wt 52.6 kg
[2020-09-14 08:54] VITALS: BP 136/86
--- NOTE | 2020-09-14 09:02 | NUR ---
Pain Clinic Assessment: 1. History of Osteoarthritis: Not Applicable History of Rheumatoid Arthritis: Not Applicable 2. Height: 5 ft. 9 in. 175.3 cm. Weight: 116.0 lb. oz. 52.617 kg. Patient's BMI: 17.1 3. Vital Signs: BP: 136/86 Pulse: 72 Resp: 16 Temp: 02 Sat: 97 ECG Mon: 4. Pain Intensity: 3 5. Fall Risk: Dizziness: N Needs help standing or walking: N Fallen in the last 3 months: N Fall risk comments: 6. Patient on Blood Thinner: None 7. History of Hypertension: Y 8. Opioid Therapy greater than 6 weeks: Y Opiate Contract Signed: 03/06/16 9. Risk Assessment Tool Provided: 1/LOW 10. Functional Assessment Tool: 11. Recreational Drug Use: Never Drug Type: Tobacco Use: Current Every Day Smoker Tobacco Type: Cigarettes Amount or Packs/day: How Many Years: Alcohol Use: Yes Frequency: Quant:
--- NOTE | 2020-09-15 11:37 | HPC ---
[facility] [place] [address] PAIN MANAGEMENT CONSULTATION Name: JLUIUS FANG Room #: REG [facility] M..#: [id number] Admission: 09/14/20 Attend Phys: Cassia Owens Discharge: Date of : 61 Report #: [id number] THIS REPORT FOR: cc: Anne Julian MD,Anne Owens,Cassia ARREDONDO ~ DATE OF SERVICE: 09/14/2020 cc: Dr Abeeb Campos DO CHIEF COMPLAINT: Low back pain, lower extremity pain and paresthesias and left buttock pain. HISTORY OF PRESENT ILLNESS: As you know, this is a pleasant 55-year-old female who returns to the pain clinic today for refill of her medications. Today, she is reporting a pain score of 3/10 in her usual low back pain that radiates down her right leg. She believes the spinal cord stimulator helps significantly along with hydrocodone pills that she takes on an as needed basis. She does report a sharp, aching sensation that is worse in the mornings. Typically stretching does help, though for the past 2 months, she has had ongoing pain issues in her left piriformis muscle with no radicular symptoms. She has now been stretching midday, but the pain does continue to be bothersome in this area. Today, the patient would like refills of her medication [place]. 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 ALLERGIES: No known drug allergies. CURRENT LIST OF MEDICATIONS: Hydrocodone 10/325 p.r.n., zinc, vitamin D, vitamin C, vitamin B12, Lunesta, calcium, lisinopril, and bupropion. PQRS: 1. She denies any osteoarthritis or rheumatoid arthritis. 2. Height is 5 feet 9 inches, weight is 109, BMI is 16. 3. Vital signs: Blood pressure as 136/86, pulse is 72, respirations 16, and oxygen sat is 97. Pain score is 3/10. Fall risk. Denies dizziness, does not need help walking or standing, has not fallen in the last 3 months. The patient is not on any blood thinners, but does take medicine for hypertension. Opioid therapy is greater than 6 weeks; therefore, an opioid signed contract is on the chart. Risk assessment is low. Functional assessment is 15/70. 4. Recreational drug use, she denies. She continues to smoke about half a pack of cigarettes per day and does occasionally drink alcohol. The prescription monitoring system, she is filling appropriately in a timely fashion. Her morphine milliequivalent is 30-40 MME depending on the dose for the day. [facility] [address] [place] [address] PAIN MANAGEMENT CONSULTATION Name: ANNALISAJULIUSRosemary WILKES [id number] Admission: 09/14/20 Attend Phys: Cassia Owens Discharge: Date of : 61 Report #: [id number] PHYSICAL EXAMINATION: GENERAL: This is a well-developed 55-year-old who appears her stated age, rating her pain score at 3/10 today. HEENT: Normocephalic, atraumatic. Pupils equal, round and reactive to light. Speech is fluent. She is wearing glasses and a mask today. EXTREMITIES: No clubbing, no edema. MUSCULOSKELETAL: She has palpable tenderness in her lower lumbar spine with a well-healed approximated scar and a spinal cord stimulator battery in place. Her lower extremity strength is symmetrical at 5/5 with muscle bulk and tone equal. Coral's test is positive on the left. Seated straight leg raising is negative. IMPRESSION: 1. Chronic lumbar radiculopathy. 2. Myofascial pain, left piriformis syndrome 3. Lumbosacral spondylosis. 4. Lumbar degeneration. 5. Opioid medication management under written agreement. PLAN: 1. We discussed treatment options with the patient today. After examination, I believe the patient is having increased pain in her piriformis muscle that has been ongoing for at least 2 months. She has tried stretching as well as heat, and ice and has not been beneficial. Occasionally, she will take a Aleve finding this beneficial for very short periods. We will seek authorization for a piriformis injection due to this myofascial pain by Dr. Abebe Campos to be performed tomorrow prior to the patient going out of town for the winter. 2. We will continue her on her hydrocodone 10/325 decreasing her to 90 tablets in a 30-day supply. The patient believes that she may tolerate this decrease without any difficulty. 3. We did discuss smoking cessation again today. The patient is smoking less than half a pack of cigarettes per her report every day. I encouraged her to continue to decrease. Chronic pain is affected by her smoking. 4. The patient will return tomorrow for injection. Scripts sent electronically for [address] Abebe Campos to her pharmacy. <ELECTRONICALLY SIGNED> By: Cassia Owens 09/15/20 1137 1030 1054 Cassia Owens /kimmy
== END ==
LOC: PAIN 06:46
PROVIDERS: ATTEND Clinical Nurse Specialist Adult Health
DX: M47.817 Spondylosis without myelopathy or radiculopathy, lumbosacral region (principal); R20.2 Paresthesia of skin; R10.2 Pelvic and perineal pain; M54.16 Radiculopathy, lumbar region; M79.7 Fibromyalgia; M51.36 Other intervertebral disc degeneration, lumbar region; F11.20 Opioid dependence, uncomplicated; Z88.8 Allergy status to other drugs, medicaments and biological substances

== ENCOUNTER → 2020-09-15 | Outpatient (CLI) | payer OTHER ==
[~2020-09-15] VITALS: Ht 175.3 cm; Wt 50.8 kg
[2020-09-15 14:28] VITALS: BP 109/85
--- NOTE | 2020-09-15 14:34 | NUR ---
Pain Clinic Assessment: 1. History of Osteoarthritis: Not Applicable History of Rheumatoid Arthritis: Not Applicable 2. Height: 5 ft. 9 in. 175.3 cm. Weight: 112.0 lb. oz. 50.803 kg. Patient's BMI: 16.5 3. Vital Signs: BP: 109/85 Pulse: 85 Resp: 14 Temp: 02 Sat: 97 ECG Mon: 4. Pain Intensity: 10 5. Fall Risk: Dizziness: N Needs help standing or walking: N Fallen in the last 3 months: N Fall risk comments: 6. Patient on Blood Thinner: None 7. History of Hypertension: Y 8. Opioid Therapy greater than 6 weeks: Y Opiate Contract Signed: 03/06/16 9. Risk Assessment Tool Provided: 1/LOW 10. Functional Assessment Tool: 11. Recreational Drug Use: Never Drug Type: Tobacco Use: Current Every Day Smoker Tobacco Type: Amount or Packs/day: How Many Years: Alcohol Use: Yes Frequency: Quant:
--- NOTE | 2020-09-21 07:44 | HPC ---
[facility] [place] [address] [address] [place] [address] PAIN MANAGEMENT CONSULTATION Name: JULIUS FANG Room #: REG [facility] M.R.#: [id number] Admission: 09/15/20 Attend Phys: Abebe Campos DO Discharge: Date of : 61 Report #: [id number] THIS REPORT FOR: cc: Anne Julian MD,Abebe Brown MD, DO ~ DATE OF SERVICE: 09/15/2020 CHIEF COMPLAINT: Left buttock pain. HISTORY OF PRESENT ILLNESS: As you know, the patient is a very pleasant 55-year-old female who has been followed by [facility], initially seeing my partner, Dr. Elroy Campos, then transferring care to my services for continuation of medication therapy and interventional treatments. She recently saw nurse practitioner, Cassia Owens on 09/14/2020 where she was complaining of constant left buttock pain. She was diagnosed with piriformis syndrome and provided today's appointment to undergo a piriformis injection. She has been trialing conservative treatment, but has not noted much in the way of pain improvement. She was made today's appointment to undergo a left piriformis injection to address piriformis syndrome. She denies injury or trauma that may have led to symptom development. ALLERGIES: No known drug allergies. CURRENT MEDICATIONS: Hydrocodone/acetaminophen 10/325 one tab p.o. every 8 hours p.r.n. for pain, bupropion 75 mg b.i.d., lisinopril 20 mg once a day, calcium carbonate 1 tab per day, cyanocobalamin 1000 mcg per day, ascorbic acid 500 mg 3 times a day, vitamin D 10 mcg once a day. SOCIAL HISTORY: The patient denies tobacco, alcohol, IV or illicit drug use. She is unaccompanied at today's visit. IMAGING: No new imaging available. PHYSICAL EXAMINATION: VITAL SIGNS: Blood pressure 109/85, pulse 85, respiratory rate 14 and unlabored. The patient is 97% on room air. Height 5 feet 9 inches tall, weight 112 pounds, BMI calculated 16.5. GENERAL: Well-developed, well-nourished, well-hydrated, thin, 55-year-old female, appears stated age, pain is rated today at 10/10. HEENT: Normocephalic, atraumatic. Pupils equal, round and reactive. Speech is fluent. The patient deemed a good historian. She is wearing a mask in compliance with COVID-19 regulations. EXTREMITIES: Show no clubbing, no cyanosis. No appreciable edema. MUSCULOSKELETAL: The patient has tenderness to palpation over the left buttock area. Deep palpation directly overlying the piriformis muscle is exquisitely [address] [address] PAIN MANAGEMENT CONSULTATION Name: DEMIJULIUS VALERO Room #: REG [facility] Jose#: [id number] Admission: 09/15/20 Attend Phys: Abebe Campos DO Discharge: Date of : 61 Report #: [id number] tender. External internal rotation of the left hip causes change in overall pain. External rotation causes improvement in symptoms. Internal rotation cause worsening of symptoms consistent with piriformis. ASSESSMENT: 1. Piriformis syndrome. 2. Chronic lumbar radiculopathy. 3. Lumbosacral spondylosis with chronic lumbar radiculopathy. 4. Lumbar degeneration. 5. Opioid dependency. PLAN: 1. The patient has returned today in followup visit with diagnosis of piriformis syndrome. Physical examination does confirm piriformis as the source of her current symptoms. She has been established today's appointment to undergo a piriformis injection under fluoroscopic guidance. The patient has been advised risks and benefits of the procedure, states understood and wished to proceed. 2. No medication changes made at today's visit. The patient will continue current medical therapy as prior prescribed. 3. We will plan to see the patient back in followup visit on an as needed basis for possible next in the series of piriformis injections. PROCEDURE NOTE DESCRIPTION OF PROCEDURE: Left piriformis injection. After obtaining written consent, the patient was taken and placed in a prone position. The area over the piriformis distribution was palpated and marked at the intensity of pain. Deep palpation of this area caused pain typical for the patient in this area. The area was then prepped and draped in aseptic fashion. A 27-gauge 1-1/4 inch needle was then used to anesthetize skin and subcutaneous tissue with 1 mL of 1% lidocaine. A 25-gauge 2-inch needle was advanced into the piriformis muscle. The patient did not complain of any pain or paresthesias with needle placement. After negative aspiration for heme, 3 mL of a solution containing 1 mL 40 mg per mL, 40 mg total triamcinolone and 2 mL of bupivacaine 0.5% was injected slowly. Needle was retracted custodial, flushed with 1 mL of 1% lidocaine and then removed. Sterile bandage placed over injection site. There were no new motor deficits present in the lower extremity following procedure. The patient tolerated procedure well, carefully escorted to recovery room in [address] [address] PAIN MANAGEMENT CONSULTATION Name: JULIUS FANG Room #: [facility] CruzMarie#: [id number] Admission: 09/15/20 Attend Phys: Abebe Campos DO Discharge: Date of : 61 Report #: [id number] stable condition. After meeting our discharge criteria, the patient discharged home. <ELECTRONICALLY SIGNED> By: Abebe Campos DO 09/21/20 0744 1622 1754 Abebe Campos DO /nt
== END | disposition home or self-care (01) ==
LOC: PAIN 06:57
PROVIDERS: ATTEND Anesthesiology Pain Medicine
DX: G57.02 Lesion of sciatic nerve, left lower limb (principal); M79.18 Myalgia, other site; G89.29 Other chronic pain; M47.27 Other spondylosis with radiculopathy, lumbosacral region; M51.16 Intervertebral disc disorders with radiculopathy, lumbar region; F11.20 Opioid dependence, uncomplicated; Z98.890 Other specified postprocedural states; Z79.899 Other long term (current) drug therapy

== ENCOUNTER → 2020-12-07 | Outpatient (CLI) | payer OTHER ==
[~2020-12-07] VITALS: Ht 175.3 cm; Wt 50.6 kg
[~2020-12-07] MED LIST changes: +RELAFEN500 M1 PO
[2020-12-07 10:01] VITALS: BP 135/94
--- NOTE | 2020-12-07 10:16 | NUR ---
Pain Clinic Assessment: 1. History of Osteoarthritis: Not Applicable History of Rheumatoid Arthritis: Not Applicable 2. Height: 5 ft. 9 in. 175.3 cm. Weight: 111.6 lb. oz. 50.621 kg. Patient's BMI: 16.5 3. Vital Signs: BP: 135/94 Pulse: 87 Resp: 14 Temp: 02 Sat: 97 ECG Mon: 4. Pain Intensity: 10 5. Fall Risk: Dizziness: N Needs help standing or walking: N Fallen in the last 3 months: N Fall risk comments: 6. Patient on Blood Thinner: None 7. History of Hypertension: Y 8. Opioid Therapy greater than 6 weeks: Y Opiate Contract Signed: 03/06/16 9. Risk Assessment Tool Provided: 1/LOW 10. Functional Assessment Tool: 11. Recreational Drug Use: Never Drug Type: Tobacco Use: Current Every Day Smoker Tobacco Type: Cigarettes Amount or Packs/day: How Many Years: Alcohol Use: Yes Frequency: Quant:
--- NOTE | 2020-12-14 08:06 | HPC ---
[facility] [place] [address] [address] [place] [address] PAIN MANAGEMENT CONSULTATION Name: JULIUS FANG Room #: REG [facility] M..#: [id number] Admission: 12/07/20 Attend Phys: Abebe Campos DO Discharge: Date of : 61 Report #: [id number] THIS REPORT FOR: cc: Anne Julian MD, Lisa MD Johnson,Abebe Peter DO ~ DATE OF SERVICE: 12/07/2020 CHIEF COMPLAINT: Left hip, buttock and posterolateral thigh pain. HISTORY OF PRESENT ILLNESS: As you know, the patient is a very pleasant 55-year-old female returning in followup visit with continued left hip, posterolateral thigh and buttock pain. The patient is locating symptoms over what appears to be the posterior portion of the hip today. She underwent an injection in September to address suspected piriformis syndrome given her constellation of symptoms and exacerbating factors. Unfortunately, this did not provide much in the way of improvement. There is no radiation of symptoms in a classic dermatomal distribution. The patient is actually mapping out essentially a 90-degree angle radiating from the proximal lateral portion of the left hip towards the hip joint then across the upper buttock area, but not to the SI joint. The patient indicates pain today at a level of 10/10. There has been no imaging of that area. She returns to discuss treatment options. She denies injury or trauma. ALLERGIES: No known drug allergies. CURRENT MEDICATIONS: Wellbutrin 75 mg b.i.d., lisinopril 20 mg per day, calcium carbonate 1 tab per day, ascorbic acid 1000 mg per day, vitamin D3 400 units per day, zinc gluconate 1 tab per day, hydrocodone 10/325 one tab every 8 hours p.r.n. for pain. SOCIAL HISTORY: The patient denies tobacco, alcohol, IV or illicit drug use. She is unaccompanied at today's visit. IMAGING: No new imaging available. PHYSICAL EXAMINATION: VITAL SIGNS: Blood pressure 135/94, pulse is 87, respiratory rate 14 and unlabored. The patient is 97% on room air. Height 5 feet 7 inches tall, weight 111.6 pounds, BMI calculated 16.5. GENERAL: Thin 55-year-old female, appears her stated age. She is placing pain today at 10. HEENT: Normocephalic, atraumatic. Pupils equal, round and reactive. The patient is wearing a mask in compliance with COVID-19 regulations. EXTREMITIES: Show no clubbing, no cyanosis, no edema. MUSCULOSKELETAL: Once again, the patient is presenting with palpation over the [address] [address] PAIN MANAGEMENT CONSULTATION Name: ANNALISAJULIUS WILKES Room #: REG [facility].#: [id number] Admission: 12/07/20 Attend Phys: Abebe Campos DO Discharge: Date of : 61 Report #: [id number] posterior portion of the left hip. Deep palpation in the area causes intensification of pain. The patient is able to localize symptoms directly over the posterior portion of the greater trochanter. She has radiation of symptoms along the posterolateral portion of the leg up to the greater trochanter and then across the buttock area, a short distance, but not towards the SI joint. Seated straight leg raising negative. Supine straight leg raising negative. Coral's test is only positive for pain in the area described above. There are no changes in skin color or texture. Internal and external rotation of the left hip does not cause any symptom change. Pain is elicited with standing from seated position and ambulating. ASSESSMENT: 1. Left hip pain. 2. Greater trochanteric bursitis. 3. Chronic intractable pain. PLAN: 1. Based on today's physical exam and history the patient has provided, the description the patient uses in regards to pain, the factors that exacerbate symptoms and the point of specific location of symptoms, it would appear that her symptoms are related to in some way to the left hip. There is a strong possibility that she is also experiencing a greater trochanteric bursa irritation in the area. We discussed this with the patient today. I am concerned given her age, given her levels of activity and her size that she may be suffering from some arthritic changes in the joint of the left hip. She has been having difficulty with his ongoing pain and I do think that x-ray imaging of the area would be beneficial. It is difficult to determine the specific source of her symptoms as she is pointing to areas that are unrelated to any specific joint and unrelated to any specific dermatomal distribution of symptoms, I would recommend imaging of the left hip at this time for further evaluation and then begin the process of looking towards injections based on those findings. The patient is agreeable with plan. 2. The patient will be discontinuing all nonsteroidal anti-inflammatories, in place will be using nabumetone 500 mg dose 1 tab p.o. t.i.d. The patient does report improvement with [id number] nonsteroidal anti-inflammatories. I am hoping a prescription level of medication would be beneficial. The patient will proceed with taking this medication, watch for dyspepsia, worsening of blood pressure, lower extremity edema. If she notes any of those side effects, discontinue immediately. 3. The patient will undergo x-ray imaging of the left hip. We will have those results by tomorrow, she can contact our clinic. Hopefully, there will be minimal changes and we can decide the treatment based on that finding. She will contact our clinic tomorrow for those findings. 4. We will begin the process of authorization for the patient to undergo a greater trochanteric bursa injection. I am hopeful that the x-ray imaging obtained today will show no significant arthritic pathology and that the [address] [address] PAIN MANAGEMENT CONSULTATION Name: JULIUS FANG Room #: REG [facility] Garcia#: [id number] Admission: 12/07/20 Attend Phys: Abebe Campos DO Discharge: Date of : 61 Report #: [id number] is the source of her symptoms. The patient is agreeable with this plan. We will begin the process of authorization for a greater trochanteric bursa once we have had a chance to review the x-ray imaging of the hip to confirm there is no intrinsic hip pathology. <ELECTRONICALLY SIGNED> By: Abebe Campos DO 12/14/20 0806 0840 2045 Abebe Campos DO /nt
== END ==
LOC: RAD 06:52 → PAIN 06:52
PROVIDERS: ATTEND Anesthesiology Pain Medicine
DX: M25.552 Pain in left hip (principal); M70.60 Trochanteric bursitis, unspecified hip; Z79.899 Other long term (current) drug therapy

== ENCOUNTER → 2021-01-18 | Outpatient (CLI) | payer OTHER ==
[~2021-01-18] VITALS: Ht 175.3 cm; Wt 49.4 kg
[~2021-01-18] MED LIST changes: +NABUMETONE 500500 M2 PO
[2021-01-18 10:00] VITALS: BP 115/81
--- NOTE | 2021-01-18 10:14 | NUR ---
Pain Clinic Assessment: 1. History of Osteoarthritis: Not Applicable History of Rheumatoid Arthritis: Not Applicable 2. Height: 5 ft. 9 in. 175.3 cm. Weight: 108.8 lb. oz. 49.351 kg. Patient's BMI: 16.1 3. Vital Signs: BP: 115/81 Pulse: 79 Resp: 16 Temp: 02 Sat: 100 ECG Mon: 4. Pain Intensity: 8 5. Fall Risk: Dizziness: N Needs help standing or walking: N Fallen in the last 3 months: N Fall risk comments: 6. Patient on Blood Thinner: None 7. History of Hypertension: Y 8. Opioid Therapy greater than 6 weeks: Y Opiate Contract Signed: 03/06/16 9. Risk Assessment Tool Provided: 1/LOW 10. Functional Assessment Tool: 11. Recreational Drug Use: Never Drug Type: Tobacco Use: Former Smoker Tobacco Type: Amount or Packs/day: How Many Years: Alcohol Use: Yes Frequency: Daily Quant: 1
--- NOTE | 2021-01-19 07:59 | HPC ---
[facility] [place] [address] PAIN MANAGEMENT CONSULTATION Name: JULIUS FANG Room #: REG [facility]..#: [id number] Admission: 01/18/21 Attend Phys: Abebe Campos DO Discharge: Date of : 61 Report #: [id number] THIS REPORT FOR: cc: Anne Julian MD, Lisa MD Johnson, James E. DO ~ DOC #: [id number] DATE OF SERVICE: 01/18/2021 DATE OF SERVICE: 01/18/2021. CHIEF COMPLAINT: Left buttock pain. HISTORY OF PRESENT ILLNESS: As you know, the patient is a pleasant 55-year-old female, returning today in followup visit with continued right buttock pain. She is able to localize pain to the inferior portion of the iliac crest and radiating down the buttock in the distribution of the gluteus medius muscle. She is able to localize three trigger points that caused the patient's typical pain. She returns to discuss interventional treatment options to address this ongoing symptoms. She is denying any injury or trauma. As you are aware, imaging studies have shown no significant hip pathology. She has undergone treatment of all the major joints in the area, all of which have provided only transient improvement. She is able to localize the pain now and three specific points over the gluteus minimus muscle. She returns to discuss interventional treatment to address this issue. She has denied any injury or trauma. ALLERGIES: NO KNOWN DRUG ALLERGIES. CURRENT MEDICATIONS: See chart. SOCIAL HISTORY: The patient denies tobacco, alcohol or illicit drug use. She is unaccompanied today. IMAGING: No new imaging available. PHYSICAL EXAMINATION: VITAL SIGNS: Blood pressure 115/81, pulse 79, respiratory rate 16 and unlabored. The patient is 100% on room air. Height 5 feet 9 inches tall, weight 108.8 pounds, BMI calculated 16.1. GENERAL: Thin 55-year-old female, appears stated age, pain is rated today 8/10, localized over the left buttock area. HEENT: Normocephalic, atraumatic. Pupils are round and responsive. She is wearing a mask in compliance with COVID-19 regulations. EXTREMITIES: Show no clubbing, no cyanosis, no edema. MUSCULOSKELETAL: The patient has 3 specific trigger points identified in the left buttock area, 2 just at the inferior lip of the iliac crest on the superior [address] [address] PAIN MANAGEMENT CONSULTATION Name: ANNALISAJULIUS WILKES Room #: REG CLI [facility]#: [id number] Admission: 01/18/21 Attend Phys: Abebe Campos DO Discharge: Date of : 61 Report #: [id number] portion. The second is in the buttock area, directly over the insertion site of the gluteal muscles. Deep palpation of these three areas caused the patient's typical radiating pain. She is experiencing no numbness and tingling with palpation. Seated straight leg raising negative. Supine straight leg raising negative. ASSESSMENT: 1. Myofascial pain. 2. Chronic muscle spasms of the gluteal muscles. 3. Chronic intractable pain. PLAN: 1. The patient returns today in followup visit with point specific pain over the left buttock area. She has three specific trigger points that caused the patient's typical radiating pain pattern, 2 on the superior, inferior edge of the iliac crest. The third is in the mid buttock area at the insertion site of the gluteus muscles. We located all 3 by palpation. The patient was able to locate those as well and localized directly over the area of palpatory tenderness. We discussed treatment options and chose to have the patient undergo trigger point injections. The patient was agreeable. 2. No medication changes made at today's visit. The patient will continue current medical therapy as prior prescribed. 3. We will see the patient back in followup visit on an as needed basis. We are hopeful the patient will see good benefit with the trigger point injections. We will be available to see her back if further injections to address this issue are necessary. PROCEDURE NOTE DESCRIPTION OF PROCEDURE: Trigger point injections. After obtaining written consent, the patient was placed in a prone position. By palpating using a single finger, three trigger points were identified that reproduced the patient's typical radiating pain pattern. Trigger points were located in the buttock area on the left side. Two were inferior to the superior iliac spine and one within the main buttock area at the insertion site of the gluteus muscles. Each of the target sites of injection were cleansed using aseptic technique with chlorhexidine. A 25-gauge 2-inch needle was advanced towards each trigger point until the patient's typical radiating pain pattern was reproduced. After negative aspiration for heme, 2 mL of a solution containing 1 mL, 40 mg per mL, 40 mg total triamcinolone and 5 mL of bupivacaine 0.5% was injected in a fanned out distribution at each of the trigger points. A total volume of 6 mL being provided. Sterile bandages were then placed over the injection sites. The patient tolerated the procedure well and carefully escorted to recovery room [address] [address] PAIN MANAGEMENT CONSULTATION Name: JULIUS FANG Room #: REG [facility]#: [id number] Admission: 01/18/21 Attend Phys: Abebe Campos DO Discharge: Date of : 61 Report #: [id number] in stable condition. After meeting our discharge criteria, the patient discharged home. Abebe Campos DO JEJ/PUN <ELECTRONICALLY SIGNED> By: Abebe Campos DO 01/19/21 0759 1552 0024 Abebe Campos DO /nt
== END | disposition home or self-care (01) ==
LOC: PAIN 06:59
PROVIDERS: ATTEND Anesthesiology Pain Medicine
DX: M79.18 Myalgia, other site (principal); G89.29 Other chronic pain; M25.552 Pain in left hip; Z98.890 Other specified postprocedural states; Z79.899 Other long term (current) drug therapy; Z87.891 Personal history of nicotine dependence; Z88.8 Allergy status to other drugs, medicaments and biological substances

== ENCOUNTER → 2021-02-01 | Outpatient (CLI) | payer OTHER ==
[~2021-02-01] VITALS: Ht 172.7 cm; Wt 48.8 kg
[2021-02-01 09:55] VITALS: BP 129/93
--- NOTE | 2021-02-01 09:58 | NUR ---
Pain Clinic Assessment: 1. History of Osteoarthritis: Not Applicable History of Rheumatoid Arthritis: Not Applicable 2. Height: 5 ft. 8 in. 172.7 cm. Weight: 107.6 lb. oz. 48.807 kg. Patient's BMI: 16.4 3. Vital Signs: BP: 129/93 Pulse: 79 Resp: 18 Temp: 02 Sat: 98 ECG Mon: 4. Pain Intensity: 3 5. Fall Risk: Dizziness: N Needs help standing or walking: N Fallen in the last 3 months: N Fall risk comments: 6. Patient on Blood Thinner: None 7. History of Hypertension: Y 8. Opioid Therapy greater than 6 weeks: Y Opiate Contract Signed: 03/06/16 9. Risk Assessment Tool Provided: 1/LOW 10. Functional Assessment Tool: 11. Recreational Drug Use: Never Drug Type: Tobacco Use: Former Smoker Tobacco Type: Amount or Packs/day: How Many Years: Alcohol Use: Yes Frequency: Quant:
--- NOTE | 2021-02-02 08:43 | HPC ---
[facility] [place] [address] PAIN MANAGEMENT CONSULTATION Name: JULIUS FANG Room #: REG [facility] M..#: [id number] Admission: 02/01/21 Attend Phys: Cassia Owens Discharge: Date of : 61 Report #: [id number] THIS REPORT FOR: cc: Anne Julian MD,Anne Owens,Cassia ARREDONDO ~ DOC #: [id number] cc: Anne Julian DO, James E. Johnson, DO Cassia Owens, XIOMY DATE OF SERVICE: 02/01/2021 CHIEF COMPLAINT: Left buttock pain and posterior thigh pain. HISTORY OF PRESENT ILLNESS: This is a very pleasant 55-year-old female who returns to the pain clinic today for renewal of her opioid medications. Today, she reports that the trigger point injections that Dr. Abebe Campos performed a couple of weeks ago have been beneficial. She is stating 60-70% improvement. Today, she is describing one trigger point that is still bothersome. She can locate it with one finger in her left buttock. It is in the gluteus medius muscle. She describes her pain as a 3 out of 10 today. Also, pain in her lower back. Her spinal cord stimulator and her medications are beneficial in helping reduce her pain as well. Today, she would like a renewal of her opioid medications. The patient does report taking her nabumetone 3 times a day. She has found that if she does not eat with it, it does cause GI upset and has started eating breakfast with the medication. ALLERGIES: No known drug allergies. CURRENT LIST OF MEDICATIONS: Nabumetone 500 mg t.i.d., hydrocodone 10/325 p.r.n., vitamin D, vitamin C, vitamin B12, Lunesta, lisinopril, and bupropion. PATIENT'S PQRS: She denies osteo or rheumatoid arthritis. Height is 5 feet 8 inches, weight is 107. BMI is 16. Vital Signs: Blood pressure 129/93, pulse is 79, respirations 18, oxygen sat is 98%. Pain score is 3/10. Fall risk: Denies dizziness, does not need help walking or standing, has not fallen in the last 3 months. The patient is not on any blood thinners, but does take medicine for hypertension. Her opioid therapy is greater than 6 weeks; therefore, an opioid signed contract is on the chart. RISK ASSESSMENT: Low. FUNCTIONAL ASSESSMENT: . RECREATIONAL DRUG USE: She denies. She is a [place] [address] PAIN MANAGEMENT CONSULTATION Name: JULIUS FANG Room #: REG [facility] Jose#: [id number] Admission: 02/01/21 Attend Phys: Cassia Owens Discharge: Date of : 61 Report #: [id number] drinks alcohol. According to the prescription monitoring system, she last filled in December and is due to fill her medications today. Her morphine milligram equivalent is 30 MME per day. There is a drug screen on the chart, which we will collect again at her next visit. PHYSICAL EXAMINATION GENERAL: This is alert and orientated, very thin 55-year-old female who appears her stated age, rating her pain score today at 3/10. She is a good historian. HEENT: Normocephalic, atraumatic. Pupils equal, round and reactive to light. She is wearing a mask. EXTREMITIES: No clubbing, no cyanosis, no edema. MUSCULOSKELETAL: One trigger point in the left buttock area in the gluteus medius muscle with deep palpation is tender. Pain in the lumbosacral region of her back as well. Spinal cord battery is present in her left buttock. ASSESSMENT: 1. Myofascial pain. 2. Chronic muscle spasm at the gluteal muscles. Chronic intractable pain. Lumbar sacral spondylosis. 3. Lumbar degeneration. 4. Opioid dependency. Utilizing scheduled opioid medications under agreement. 5. Tobacco cessation. We reviewed the fact that opiate medications are being used to provide analgesia adequate to support activities of daily living, not attempting to achieve a specific pain score on the 0-10 Visual Analog Scale. The current opiate medications are providing sufficient analgesia to allow the patient to participate in activities of daily living. The patient is not exhibiting any aberrant behavior suggestive of drug diversion. The patient is not having any adverse reactions to medications. The patient is not suffering from daytime somnolence or mental acuity changes. The patient is managing opiate-induced constipation with appropriate cohg-hzf-rxhimuo agents and dietary considerations. The patient was counseled on concern for caution with operating a motor vehicle while using opiate medications. A physical exam was performed and the patient's functional status was evaluated. All patients with back pain were advised against the bed rest greater than 4 days and were advised to return to normal activities. Pain score assessment was noted and the treatment plan was reviewed with the patient. All current medications, both prescribed and OTC were reviewed and reconciled on the electronic medical record. Tobacco screening was accomplished and smoking cessation was advised when indicated. BMI was noted and diet/exercise modification was recommended for all patients following outside normal parameters. [address] [address] PAIN MANAGEMENT CONSULTATION Name: JULIUS FANG Room #: REG CL[facility] Garcia#: [id number] Admission: 02/01/21 Attend Phys: Cassia Owens Discharge: Date of : 61 Report #: [id number] I reviewed with the patient today their responsibilities to safeguard prescription medications, reviewed their responsibility to utilize medications only as prescribed by the physician. They are to seek and receive pain medications only from 1 physician group ( [facility]). They are to use 1 pharmacy and keep the clinic informed if they change pharmacies. Their responsibilities include making followup visits in a timely fashion and to avoid abrupt discontinuation of medication usage. Their responsibilities further include bringing their medications (bottles from the pharmacy with residual pills) to the visit for possible confirmation of pill counts and the patient understands it is their responsibility to submit to random drug screens to ensure both that the medications prescribed are present, and that no other controlled substances are present. All prescriptions provided today were generated electronically. PLAN: 1. We discussed treatment options with the patient today. The patient has received at least 60-70% improvement from her trigger point injection. We discussed waiting until the middle of February to see if rest as well as utilizing her nabumetone helps relieve the remainder of this painful area. The patient is agreeable. If it is chiller tender in the one trigger point in her left gluteal medius muscle, we will have her make an appointment with Dr. Abebe Campos for another trigger point injection. 2. We discussed the importance of food with taking nabumetone not on an empty stomach. The patient was nauseated with not eating and taking this medication. Hopefully, if her pain generator does diminish in the next month, she may decrease this medication to twice a day and continue taking it at lunch and dinner time. The patient has several medication refills at the pharmacy and was provided a sheet that shows, we had sent this electronically in December to give to the pharmacist. 3. The patient does have 2 prescriptions of hydrocodone at the pharmacy 1 to fill today and again in 4 weeks. Therefore, we will provide her with 1 additional script today to fill in 8 weeks of her hydrocodone . 4. The patient continues to not smoke and has been greater than 1 month. Time spent with the patient in consultation, reviewing recent studies, clinical notes and physician reports, physical examination and correlation of physical findings and medical documentation to determine possible treatments, 12 minutes. Time spent and preparation for appointment reviewing prescription monitoring system reports, reviewing previous records and treatment options, reviewing current medications, 5 minutes. Time spent preparing and sending electronic prescriptions with collaborating physician, Dr. Abebe Campos and documentation of visit and plan of treatment, 4 minutes. TOTAL TIME SPENT: [address] [place] [address] PAIN MANAGEMENT CONSULTATION Name: ANNALISAJULIUS WILKES Room #: REG [facility] Jose#: [id number] Admission: 02/01/21 Attend Phys: Cassia Owens Discharge: Date of : 61 Report #: [id number] XIOMY Chung/ORTIZ <ELECTRONICALLY SIGNED> By: Cassia Owens 02/02/21 0843 0926 Cassia Owens /nt
== END ==
LOC: PAIN 07:05
PROVIDERS: ATTEND Clinical Nurse Specialist Adult Health
DX: M47.817 Spondylosis without myelopathy or radiculopathy, lumbosacral region (principal); M79.18 Myalgia, other site; G89.4 Chronic pain syndrome; Z79.891 Long term (current) use of opiate analgesic; Z79.899 Other long term (current) drug therapy

== ENCOUNTER → 2021-05-04 | Outpatient (CLI) | payer OTHER ==
[~2021-05-04] VITALS: Ht 172.7 cm; Wt 50.3 kg
[2021-05-04 12:40] VITALS: BP 138/96
--- NOTE | 2021-05-04 12:55 | NUR ---
Pain Clinic Assessment: 1. History of Osteoarthritis: Not Applicable History of Rheumatoid Arthritis: Not Applicable 2. Height: 5 ft. 8 in. 172.7 cm. Weight: 111.0 lb. oz. 50.349 kg. Patient's BMI: 16.9 3. Vital Signs: BP: 138/96 Pulse: 76 Resp: 14 Temp: 02 Sat: 99 ECG Mon: 4. Pain Intensity: 2 5. Fall Risk: Dizziness: N Needs help standing or walking: N Fallen in the last 3 months: N Fall risk comments: 6. Patient on Blood Thinner: None 7. History of Hypertension: Y 8. Opioid Therapy greater than 6 weeks: Y Opiate Contract Signed: 03/06/16 9. Risk Assessment Tool Provided: 1/LOW 10. Functional Assessment Tool: 11. Recreational Drug Use: Never Drug Type: Tobacco Use: Former Smoker Tobacco Type: Amount or Packs/day: How Many Years: Alcohol Use: Yes Frequency: Daily Quant: 1
--- NOTE | 2021-05-05 08:29 | HPC ---
[facility] [address] [place] [address] PAIN MANAGEMENT CONSULTATION Name: JULIUS FANG Room #: REG [facility] M..#: [id number] Admission: 05/04/21 Attend Phys: Cassia Owens Discharge: Date of : 61 Report #: [id number] THIS REPORT FOR: cc: Anne Julian MD,Anne Owens,Cassia ARREDONDO ~ cc: Abebe Campos DO, Anne Julian DO DATE OF SERVICE: 05/04/2021 CHIEF COMPLAINT: Left buttock pain and posterior thigh pain. HISTORY OF PRESENT ILLNESS: This is a very pleasant 56-year-old female who returns to the pain clinic today for renewal of her medications as she comes every 3 months for. Today, she is reporting a pain score of 2/10. She believes her hydrocodone and spinal cord stimulator are very beneficial in controlling her pain. She does report using her spinal cord stimulator all day and is thankful that she has this device. The patient has most problematic area is in her left hip and buttock and her right lower back. She describes her pain as an aching, sharp sensation that is worse upon getting up in the mornings and prolonged sitting. She denies any constipation or daytime somnolence as a result of her opioid medications. The patient has reported that she is taking less naproxen since her flare in her left buttock has calmed down. She believes that the naproxen as well as the trigger point injections were very beneficial in controlling that pain. ALLERGIES: DOXYCYCLINE. CURRENT LIST OF MEDICATIONS: Hydrocodone 10/325 t.i.d. p.r.n., nabumetone p.r.n., vitamin D, vitamin C, vitamin B12, Lunesta, lisinopril, and Wellbutrin. PQRS: 1. The patient denies any rheumatoid or osteoarthritis. 2. Height is 5 feet 8 inches, weight is 110. BMI is 16. 3. Vital signs; blood pressure 138/96, pulse is 76, respirations 14, oxygen sat is 99%. 4. Pain score is 2/10. 5. Denies dizziness, does not need help walking or standing, has not fallen in the last 3 months. 6. The patient is not on any blood thinners, but does take medicine for hypertension. 7. Opioid therapy is greater than 6 weeks; therefore, an opioid signed contract is on the chart. 8. Risk assessment is low. Functional assessment is 15/70. 9. Recreational drug use, she denies. She is a former smoker, quit last December and occasionally drinks alcohol. [address] [address] PAIN MANAGEMENT CONSULTATION Name: ANNALISAJULIUSRosemary WILKES Room #: REG [facility] Garcia#: [id number] Admission: 05/04/21 Attend Phys: Cassia Owens Discharge: Date of : 61 Report #: [id number] According to the prescription monitoring system, the patient is filling appropriately. She is due to fill her medications later this week. Her morphine mEq is 30 MMEs. We will collect a random drug screen on this patient today. PHYSICAL EXAMINATION: GENERAL: This is alert and orientated, very pleasant 56-year-old female who appears her stated age, rating her pain score today at 2/10. HEENT: Normocephalic and atraumatic. Pupils are equal, round and reactive. She is wearing a mask. EXTREMITIES: No clubbing, no cyanosis, no edema. MUSCULOSKELETAL: Discomfort in the lumbosacral region of her back and does radiate into her left buttock with slight tenderness there greatly improved from her last visit. She has a spinal cord stimulator in left buttock. Lower extremity strength are symmetrical at 5/5. ASSESSMENT: 1. Chronic muscle spasms of the gluteal muscles. 2. Chronic intractable pain. 3. Lumbosacral spondylosis. 4. Lumbar degeneration. 5. Opioid dependency utilizing scheduled opioid medications. We reviewed the fact that opiate medications are being used to provide analgesia adequate to support activities of daily living, not attempting to achieve a specific pain score on the 0-10 Visual Analog Scale. The current opiate medications are providing sufficient analgesia to allow the patient to participate in activities of daily living. The patient is not exhibiting any aberrant behavior suggestive of drug diversion. The patient is not having any adverse reactions to medications. The patient is not suffering from daytime somnolence or mental acuity changes. The patient is managing opiate-induced constipation with appropriate ljvn-eul-vomdyuq agents and dietary considerations. The patient was counseled on concern for caution with operating a motor vehicle while using opiate medications A physical exam was performed and the patient's functional status was evaluated. All patients with back pain were advised against the bed rest greater than 4 days and were advised to return to normal activities. Pain score assessment was noted and the treatment plan was reviewed with the patient. All current medications, both prescribed and OTC were reviewed and reconciled on the electronic medical record. Tobacco screening was accomplished and smoking cessation was advised when indicated. BMI was noted and diet/exercise modification was recommended for all patients following outside normal parameters I reviewed with the patient today their [facility] [address] [address] PAIN MANAGEMENT CONSULTATION Name: JULIUS FANG Room #: REG CLI Jose#: [id number] Admission: 05/04/21 Attend Phys: Cassia Owens Discharge: Date of : 61 Report #: [id number] prescription medications, reviewed their responsibility to utilize medications only as prescribed by the physician. They are to seek and receive pain medications only from 1 physician group ( [facility]). They are to use 1 pharmacy and keep the clinic informed if they change pharmacies. Their responsibilities include making followup visits in a timely fashion and to avoid abrupt discontinuation of medication usage. Their responsibilities further include bringing their medications (bottles from the pharmacy with residual pills) to the visit for possible confirmation of pill counts and the patient understands it is their responsibility to submit to random drug screens to ensure both that the medications prescribed are present, and that no other controlled substances are present. All prescriptions provided today were generated electronically. PLAN: 1. We discussed treatment options with the patient today. The patient has been utilizing naproxen lessens her muscle spasms and trigger points area that was flared in her left gluteal el has decreased. I encouraged the patient to keep it in her body in case she does have a flare, then she can restart this medications. If she gets increasingly worse, Dr. Abebe Campos can reinject that trigger point again in the future. 2. We will continue her on her hydrocodone 10/325, #90. She does take all three of these medications daily, finds that she tried to decrease to 2 pills a day, but reports after four days, her pain was so intense then she did return to 3 tablets a day. These will be sent electronically for [address] Abebe Campos. 3. We did discuss the patient has quit smoking, but occasionally has pressure in her chest or coughing sensation, trying to get air, her oxygen sats today are 99-100%. I encouraged her at her office visit with her primary care doctor to address this issue. I also encouraged her to monitor her blood pressure and pulse at home, so she can report those findings to her physician. Her blood pressure is slightly elevated today despite taking her lisinopril. Time spent with the patient in consultation, reviewing recent studies and clinical notes and physician reports, physical examination and correlation of findings, documentation will determine possible treatment options 15 minutes. Time spent preparing for appointment reviewing prescription monitoring system reports, reviewing previous records and treatment options and reviewing current medications 5 minutes. Time spent with preparing and sending electronic prescriptions with collaborating physician, Dr. Abebe Campos, documentation and plan of treatment 5 [place] [address] PAIN MANAGEMENT CONSULTATION Name: JULIUS FANG Room #: REG [facility] Garcia#: [id number] Admission: 05/04/21 Attend Phys: Cassia Owens Discharge: Date of : 61 Report #: [id number] Total time spent 25 minutes. <ELECTRONICALLY SIGNED> By: Cassia Owens 05/05/21 0829 1251 [id number] Cassia Owens /kimmy
== END ==
LOC: PAIN 10:30
PROVIDERS: ATTEND Clinical Nurse Specialist Adult Health
DX: G89.4 Chronic pain syndrome (principal); M47.27 Other spondylosis with radiculopathy, lumbosacral region; M62.838 Other muscle spasm; Z79.891 Long term (current) use of opiate analgesic; Z79.899 Other long term (current) drug therapy

== ENCOUNTER → 2021-08-02 | Outpatient (CLI) | payer OTHER ==
[~2021-08-02] VITALS: Ht 172.7 cm; Wt 51.6 kg
[2021-08-02 10:40] VITALS: BP 132/89
--- NOTE | 2021-08-02 10:56 | NUR ---
Pain Clinic Assessment: 1. History of Osteoarthritis: Not Applicable History of Rheumatoid Arthritis: Not Applicable 2. Height: 5 ft. 8 in. 172.7 cm. Weight: 113.8 lb. oz. 51.619 kg. Patient's BMI: 17.3 3. Vital Signs: BP: 132/89 Pulse: 80 Resp: 14 Temp: 02 Sat: 98 ECG Mon: 4. Pain Intensity: 5 HIP 5. Fall Risk: Dizziness: N Needs help standing or walking: N Fallen in the last 3 months: N Fall risk comments: 6. Patient on Blood Thinner: None 7. History of Hypertension: Y 8. Opioid Therapy greater than 6 weeks: Y Opiate Contract Signed: 03/06/16 9. Risk Assessment Tool Provided: 1/REZA 10. Functional Assessment Tool: 11. Recreational Drug Use: Never Drug Type: Tobacco Use: Former Smoker Tobacco Type: Amount or Packs/day: How Many Years: Alcohol Use: Yes Frequency: Daily Quant: 1
--- NOTE | 2021-08-02 15:00 | HPC ---
[facility] [place] [address] PAIN MANAGEMENT CONSULTATION Name: JULIUS FANG Room #: REG JOSY Jose#: [id number] Admission: 08/02/21 Attend Phys: Abebe Campos DO Discharge: Date of : 61 Report #: [id number] THIS REPORT FOR: cc: Anne Julian MD,Abebe Brown MD, DO ~ cc: Anne Julian DO DATE OF SERVICE: 08/02/2021 CHIEF COMPLAINT: Left buttock pain and posterolateral thigh pain. HISTORY OF PRESENT ILLNESS: As you know, the patient is a 56-year-old female returning to our pain clinic for renewal of medications. She reports good efficacy with the medications, reporting up to 60% improvement in overall pain with the use of hydrocodone and nabumetone. She returns also requesting trigger point injections to address recurrence of her myofascial symptoms involving the muscles of the gluteal area. She underwent trigger point injections in 01/2021 with great benefit up to 80% improvement in symptoms. She has been doing well until just recently where symptoms began to reoccur. She returns today for refill of medications and to begin the process of authorization to undergo trigger point injections to address myofascial symptoms involving the left buttock area. The patient continues to participate in daily activities and exercise routines. She has failed conservative treatment in regards to this issue and did well with trigger point injections in January. She returns to begin that process of authorization. ALLERGIES: DOXYCYCLINE. CURRENT MEDICATIONS: Hydrocodone/acetaminophen 10/325 one tab p.o. q. 8 hours p.r.n. for pain, nabumetone 500 mg 3 times a day, cholecalciferol 10 mcg per day, ascorbic acid 500 mg once a day, cyanocobalamin 1000 mcg per day, lisinopril 20 mg per day, bupropion 75 mg per day. SOCIAL HISTORY: The patient reports she is a nonsmoker. She is a former smoker, but has not smoked in years. Denies IV or illicit drug use. Denies any chronic alcohol use. She is unaccompanied at today's visit. IMAGING: No new imaging available. PHYSICAL EXAMINATION: VITAL SIGNS: Blood pressure 132/89, pulse 80, respiratory rate 14 and unlabored. The patient is 98% on room air. Height 5 feet 8 inches tall, weight 113.8 pounds, BMI calculated 17.3. GENERAL: A well-developed, well-nourished, well-hydrated 56-year-old female appearing stated age. She is in no acute distress. Awake, alert and oriented x 3. Pain is rated today 5/10. [address] [address] PAIN MANAGEMENT CONSULTATION Name: JULIUS FANG Room #: REG JOSY Garcia#: [id number] Admission: 08/02/21 Attend Phys: Abebe Campos DO Discharge: Date of : 61 Report #: [id number] HEENT: Normocephalic, atraumatic. Pupils equal, round and responsive to light. Extraocular muscles are intact. Speech fluent. She is wearing a mask in compliance with COVID-19 regulations. EXTREMITIES: Show no clubbing, no cyanosis, no edema. MUSCULOSKELETAL: Lower extremity strength equal and symmetrical 5/5. Muscle bulk and tone is equal and symmetrical in lower extremities. The patient has multiple trigger points identified in the left buttock area as well as just inferior to the lip of the iliac crest on the superior portion. The other areas have tender points, but no specific trigger points. Seated straight leg raising negative. Supine straight leg raising negative. Coral test is negative. Modified Gaenslen's positive for some axial low back pain. ASSESSMENT: 1. Myofascial pain. 2. Chronic muscle spasms of the gluteal muscles. 3. Lumbosacral spondylosis without radiculopathy. 4. Lumbar degeneration. 5. Chronic intractable pain. PLAN: 1. The patient returns today in followup visit to begin the process of authorization to undergo trigger point injections to address the left buttock pain that has reoccurred. She had done very well with previous trigger point injections provided in January with near 80% improvement in overall pain. Unfortunately, her symptoms have reoccurred. No inciting injury or trauma. She continues to participate in daily stretching activities and exercises and utilizes gqxo-jpk-zptjajc medication as well as prescription medications for control of symptoms. She is hopeful that we can begin this process of authorization for the treatment of her myofascial symptoms and trigger points as quickly as possible. We are hopeful to have this authorization within the next couple of days. 2. We reviewed the fact that opiate medications are being used to provide analgesia adequate to support activities of daily living, not attempting to achieve a specific pain score on the 0-10 Visual Analog Scale. The current opiate medications are providing sufficient analgesia to allow the patient to participate in activities of daily living. The patient is not exhibiting any aberrant behavior suggestive of drug diversion. The patient is not having any adverse reactions to medications. The patient is not suffering from daytime somnolence or mental acuity changes. The patient is managing opiate-induced constipation with appropriate djxx-dey-oplbtfr agents and dietary considerations. The patient was counseled on concern for caution with operating a motor vehicle while using opiate medications. A physical exam was performed and the patient's functional status was evaluated. All patients with back pain were advised against the bed rest greater than 4 days and were advised to return to normal activities. Pain score assessment was [facility] [address] [place] [address] PAIN MANAGEMENT CONSULTATION Name: JULIUS FANG Room #: REG [facility] M.Emily.#: [id number] Admission: 08/02/21 Attend Phys: Abebe Campos DO Discharge: Date of : 61 Report #: [id number] noted and the treatment plan was reviewed with the patient. All current medications, both prescribed and OTC were reviewed and reconciled on the electronic medical record. Tobacco screening was accomplished and smoking cessation was advised when indicated. BMI was noted and diet/exercise modification was recommended for all patients following outside normal parameters. I reviewed with the patient today their responsibilities to safeguard prescription medications, reviewed their responsibility to utilize medications only as prescribed by the physician. They are to seek and receive pain medications only from 1 physician group ([facility]). They are to use 1 pharmacy and keep the clinic informed if they change pharmacies. Their responsibilities include making followup visits in a timely fashion and to avoid abrupt discontinuation of medication usage. Their responsibilities further include bringing their medications (bottles from the pharmacy with residual pills) to the visit for possible confirmation of pill counts and the patient understands it is their responsibility to submit to random drug screens to ensure both that the medications prescribed are present, and that no other controlled substances are present. All prescriptions provided today were generated electronically. 3. The patient was provided prescription of hydrocodone/acetaminophen 10/325, 1 tab p.o. t.i.d., #90 releasing today, 4 weeks from today, 8 weeks from today, 3 months' worth of medication. All prescriptions sent via e-scribe to local pharmacy. 4. The patient was provided refill prescription of nabumetone 500 mg dose 1 tab p.o. t.i.d. I have given the patient #90 tablets, 2 refills, 3 months' worth of medication. I will see the patient back in followup visit when we achieve authorization for the patient to undergo the requested trigger point injections to address left buttock and posterolateral thigh pain. <ELECTRONICALLY SIGNED> By: Abebe Campos DO 08/02/21 1500 1150 [id number] Abebe Campos DO /nt
== END ==
LOC: PAIN 10:19
PROVIDERS: ATTEND Anesthesiology Pain Medicine
DX: M47.817 Spondylosis without myelopathy or radiculopathy, lumbosacral region (principal); M47.816 Spondylosis without myelopathy or radiculopathy, lumbar region; G89.29 Other chronic pain; M79.18 Myalgia, other site; Z88.8 Allergy status to other drugs, medicaments and biological substances; Z79.899 Other long term (current) drug therapy

== ENCOUNTER → 2021-08-17 | Outpatient (CLI) | payer OTHER ==
[~2021-08-17] VITALS: Ht 175.3 cm; Wt 51.3 kg
[2021-08-17 08:38] VITALS: BP 148/94
--- NOTE | 2021-08-17 08:42 | NUR ---
Pain Clinic Assessment: 1. History of Osteoarthritis: Not Applicable History of Rheumatoid Arthritis: Not Applicable 2. Height: 5 ft. 9 in. 175.3 cm. Weight: 113.0 lb. oz. 51.256 kg. Patient's BMI: 16.7 3. Vital Signs: BP: 148/94 Pulse: 67 Resp: 16 Temp: 02 Sat: 97 ECG Mon: 4. Pain Intensity: 7 5. Fall Risk: Dizziness: N Needs help standing or walking: N Fallen in the last 3 months: N Fall risk comments: 6. Patient on Blood Thinner: None 7. History of Hypertension: Y 8. Opioid Therapy greater than 6 weeks: Y Opiate Contract Signed: 03/06/16 9. Risk Assessment Tool Provided: 1/LOW 10. Functional Assessment Tool: 11. Recreational Drug Use: Never Drug Type: Tobacco Use: Former Smoker Tobacco Type: Amount or Packs/day: How Many Years: Alcohol Use: Yes Frequency: Daily Quant: 1
--- NOTE | 2021-08-19 07:27 | HPC ---
[facility] [place] [address] PAIN MANAGEMENT CONSULTATION Name: JULIUS FANG Room #: REG JOSY CruzTrinidadEmily.#: [id number] Admission: 08/17/21 Attend Phys: Abebe Campos DO Discharge: Date of : 61 Report #: [id number] THIS REPORT FOR: cc: Anne uJlian MD,Abebe Brown MD, DO ~ DATE OF SERVICE: 08/17/2021 REFERRING PHYSICIAN: Anne Julian M.D. CHIEF COMPLAINT: Left lateral thigh pain. HISTORY OF PRESENT ILLNESS: As you know, the patient is a very pleasant 56-year-old female who returns today in followup visit having received authorization to undergo trigger point injections to address left lateral thigh pain consistent with myofascial symptoms. The patient had done very well with previous injections in the area with noted 70-80% improvement in overall pain. She returns today in followup visit requesting to undergo the next in the series. She is denying injury or trauma that may have led to symptom development. She is placing pain score at 7/10. Describes the pain as sharp and aching, exacerbated with activity, improves with medications and previous trigger points. She is able to localize to a very specific trigger points in the left lateral thigh. ALLERGIES: DOXYCYCLINE. CURRENT MEDICATIONS: Hydrocodone, nabumetone, cholecalciferol, ascorbic acid, cyanocobalamin, lisinopril, bupropion. SOCIAL HISTORY: The patient is a reformed smoker. Denies IV or illicit drug use. Denies any chronic alcohol use. Unaccompanied today. IMAGING: No new imaging available. PHYSICAL EXAMINATION: VITAL SIGNS: Blood pressure 140/94, pulse is 67, respiratory rate 16 and unlabored. The patient is 97% on room air. Height 5 feet 7 inches tall, weight 113 pounds, BMI calculated 16.7. GENERAL: Well-developed, well-nourished, well-hydrated, thin 56-year-old female appearing her stated age, pain is rated today 7/10. HEENT: Normocephalic, atraumatic. She is wearing a mask in compliance with COVID-19 regulations and hospital policy. EXTREMITIES: Show no clubbing, no cyanosis and no edema. MUSCULOSKELETAL: The patient has 2 specific trigger points identified in the lateral left thigh. This overlapped as what appears to be greater trochanteric area and just superior to that area. The areas have multiple tender points, but no other specific trigger points. Seated straight leg raising is negative, both [address] [address] PAIN MANAGEMENT CONSULTATION Name: JULIUS FANG Room #: REG [facility].#: [id number] Admission: 08/17/21 Attend Phys: Abebe Campos DO Discharge: Date of : 61 Report #: [id number] in supine and seated position. ASSESSMENT: 1. Myofascial pain. 2. Chronic muscle spasms of the left lateral leg. 3. Chronic intractable pain. PLAN: 1. The patient returns today in followup visit having received authorization to undergo trigger point injections at two different trigger points on the left. She has been advised of the risks and the benefits of these trigger point injections. These risks include but are not necessarily limited to bleeding, bruising, infection, worsening pain, no relief of pain, also risk of temporary or permanent muscle weakness, temporary or permanent nerve damage, allergic reaction of medication and . The patient states understood and wished to proceed. 2. No medication changes made at today's visit. The patient will continue current medical therapy as prior prescribed. 3. Plan to see the patient back in followup visit on an as needed basis for the next in the series. I am hopeful the patient will once again see good and prolonged benefit with trigger point injections today. DESCRIPTION OF PROCEDURE: Trigger point injections. After obtaining written consent, the patient was placed in a right lateral decubitus position. By palpating using a single finger, two trigger points were identified that reproduced the patient's typical radiating pain pattern. Trigger points were located in the left lateral thigh area. These were marked with sterile marker, then cleaned with chlorhexidine. A 27-gauge 1-1/4-inch needle was then used to advance towards each of the trigger points until the patient's typical radiating pain pattern was reproduced. After negative aspiration for heme, 4 mL of a solution containing 1 mL 40 mg per mL, 40 mg total triamcinolone and 7 mL of bupivacaine 0.5% was injected in a fanned out distribution at each of the trigger points. A total volume of 8 mL being provided. Sterile bandages were placed over each injection sites after the needle was removed. The patient tolerated the procedure well, carefully escorted to recovery room in stable condition. No apparent complications. After meeting our discharge criteria, the patient was then discharged home. <ELECTRONICALLY SIGNED> By: Abebe Campos DO 08/19/21 0727 [id number] Abebe Campos DO /nt
== END | disposition home or self-care (01) ==
LOC: PAIN 08-03 08:25
PROVIDERS: ATTEND Anesthesiology Pain Medicine
DX: M79.18 Myalgia, other site (principal); G89.29 Other chronic pain; Z98.890 Other specified postprocedural states; Z79.899 Other long term (current) drug therapy; Z87.891 Personal history of nicotine dependence; Z88.8 Allergy status to other drugs, medicaments and biological substances

== ENCOUNTER → 2021-11-02 | Outpatient (CLI) | payer OTHER ==
[~2021-11-02] VITALS: Ht 175.3 cm; Wt 53.7 kg
[2021-11-02 13:56] VITALS: BP 169/99
--- NOTE | 2021-11-02 13:58 | NUR ---
Pain Clinic Assessment: 1. History of Osteoarthritis: Not Applicable History of Rheumatoid Arthritis: Not Applicable 2. Height: 5 ft. 9 in. 175.3 cm. Weight: 118.4 lb. oz. 53.706 kg. Patient's BMI: 17.5 3. Vital Signs: BP: 169/99 Pulse: 69 Resp: 16 Temp: 02 Sat: 99 ECG Mon: 4. Pain Intensity: 2 TO 5 5. Fall Risk: Dizziness: N Needs help standing or walking: N Fallen in the last 3 months: N Fall risk comments: 6. Patient on Blood Thinner: None 7. History of Hypertension: Y 8. Opioid Therapy greater than 6 weeks: Y Opiate Contract Signed: 03/06/16 9. Risk Assessment Tool Provided: 1/REZA 10. Functional Assessment Tool: 11. Recreational Drug Use: Never Drug Type: Tobacco Use: Former Smoker Tobacco Type: Amount or Packs/day: How Many Years: Alcohol Use: Yes Frequency: Daily Quant: 1
== END ==
LOC: PAIN 09:05
PROVIDERS: ATTEND Clinical Nurse Specialist Adult Health
DX: M79.18 Myalgia, other site (principal); M54.50 Low back pain, unspecified; G89.29 Other chronic pain; R25.2 Cramp and spasm; Z79.899 Other long term (current) drug therapy; Z88.8 Allergy status to other drugs, medicaments and biological substances